=== PATIENT | male | born 1990 | race Caucasian/White ===

== ENCOUNTER 2021-06-13 19:00 | Inpatient (IN) | payer OTHER, SELFPAY ==
[2021-06-13 20:08] VITALS: BP 123/86; PULSE 80; RESP 16; TEMP 36.7; O2SAT 99; BMI 17.4
[2021-06-13 20:44] LABS: COVID-19 Test Negative (Negative); IDNOW Serial# 08D9AD1C
[2021-06-13 21:13] LABS: Amphetamine Screen Urine Not Detected (Not Detect); Barbiturates, Urine Not Detected (Not Detect); Benzodiazepines Screen Urine Not Detected (Not Detect); Cannabinoid Screen Urine Not Detected (Not Detect); Cocaine Screen Urine Not Detected (Not Detect); Fentanyl, urine Not Detected (Not Detect); Opiate Screen Urine Not Detected (Not Detect); Phencyclidine Screen Urine Not Detected (Not Detect)
[2021-06-13 21:22] LABS: Basophils Absolute Auto 0.1 X10*3/uL (0.0-0.2); Basophils Percent Auto 0.6 % (0-2); Eosinophils Absolute Auto 0.2 X10*3/uL (0.0-0.4); Eosinophils Percent Auto 1.9 % (0-4); Hematocrit 42.7 % (42.0-52.0); Hemoglobin 15.1 g/dl (14.0-18.0); Imm Gran Abs Auto 0.02 X10*3/uL (0.00-0.03); Imm Gran Pct Auto 0.2 % (0.0-0.4); Lymphocytes Absolute Auto 2.3 X10*3/uL (1.2-4.9); Lymphocytes Percent Auto 27.3 % (20-40); MANUAL DIFF FLAG NO; Mean Corpuscular HGB Conc 35.4 g/dl (31.0-36.0); Mean Corpuscular Hemoglobin 31.2 pg (27.0-33.0); Mean Corpuscular Volume 88.2 fL (80.0-98.0); Mean Platelet Volume 9.7 fL (9.4-12.4); Monocytes Absolute Auto 0.8 X10*3/uL (0.1-1.2); Monocytes Percent Auto 9.4 % (2-11); Neutrophils Absolute Auto 5.1 x10*3/uL (2.0-8.3); Neutrophils Percent Auto 60.6 % (45-73); Platelet Count 199 X10*3/uL (160-400); Red Blood Count 4.84 X10*6/uL (4.60-5.80); Red Cell Distribution Width 11.8 % (11.0-16.0); White Blood Count 8.4 X10*3/uL (4.8-10.8)
--- NOTE | 2021-06-13 21:28 | ED_ITS ---
HPI - Psych General Chief Complaint: Psychiatric Symptoms Stated Complaint: depression and anxiety Time Seen by Provider: 06/13/21 21:03 Source: patient Mode of arrival: ambulatory Limitations: no limitations History of Present Illness HPI Narrative: 30-year-old male with a history of anxiety and depression here with reports of increasing depression over the last few months despite changing his sertraline to use buspar. Patient tells me that he does not have a therapist or psychiatrist and is medications are being prescribed by primary care doctor. He tells me that he has had poor appetite, not wanting to get out of bed, nausea, vomiting at times and weight loss. Patient tells me that typically when he has his anxiety he vomits and this is pretty normal for him. There is no associated abdominal pain or diarrhea. No black or bloody stools. Emesis is nonbloody and nonbilious. No associated fevers, chills, urinary symptoms. Patient tells me that today he feels increasingly depressed and had some thoughts of suicide in the last week. Patient tells me that he thought of overdosing on his medications or shooting himself with a gun Related Data Home Medications Medication Instructions Recorded Confirmed buspirone 5 mg tablet 1 tab PO TID 06/13/21 06/13/21 sertraline 50 mg tablet 1 tab PO DAILY 06/13/21 06/13/21 Allergies Allergy/AdvReac Type Severity Reaction Status Date / Time No Known Allergies Allergy Verified 06/13/21 20:30 Review of Systems Review of Systems: Yes all other systems are reviewed and are negative Constitutional: Constitutional: Reports no additional constitutional complaints, Denies body ache(s), Denies chills, Denies fever(s), Denies headache(s), Reports lethargy, Reports poor appetite, Denies weakness and Reports weight loss Eyes: Eyes: Reports no additional eye complaints and Denies change in vision ENT: Reports system reviewed and no additional complaints, except as documented, Denies dizziness, Denies headache(s), Denies nasal congestion, Denies nasal discharge and Denies neck pain Cardiovascular: Cardiovascular: Reports no additional cardiovascular complaints, Denies chest pain, Denies leg edema and Denies dyspnea Respiratory: Respiratory: Reports no additional respiratory complaints, Denies cough and Denies dyspnea Gastrointestinal: Gastrointestinal: Reports no additional gastrointestinal complaints, Denies abdominal pain, Denies diarrhea, Reports nausea and Reports vomiting Genitourinary: Genitourinary: Denies urinary incontinence Musculoskeletal: Musculoskeletal: Reports no additional musculoskeletal complaints, Denies back pain, Denies arthralgias, Denies joint swelling, Denies neck pain, Denies numbness and Denies tingling Integumentary/Breasts: Skin/Breast: Reports system reviewed and no additional complaints, except as docu and Denies rash Neurologic: Reports system reviewed and no additional complaints, except as documented, Denies Abnormal speech present, Denies dizziness, Denies headache(s), Denies numbness, Denies tingling and Denies weakness Psychiatric: Psychiatric: Reports anxiety, Reports depression and Reports suicidal ideation COUNTS INCLUDE 234 BEDS AT THE [facility] Past Medical History Attestation statement: The following information was validated with the patient. Source: old records reviewed and nursing notes reviewed Medical History Anxiety Depression Social History Social History Advance Directives: No Advance Directives Information Provided: No Guardian: No Physical Exam Vital Signs: Vital Signs: Last Vital Signs Temp 98.2 F 06/13/21 23:09 Pulse 76 06/13/21 23:09 Resp 17 06/13/21 23:09 BP 126/84 06/13/21 23:09 Pulse Ox 99 06/13/21 23:09 BMI result Body Mass Index 17.4 Const: General: cooperative, healthy appearing, comfortable and no acute distress Orientation/consciousness: patient oriented x3 Limitations: no limitations HENMT: Head: Yes normal to inspection Ears: hearing grossly normal bilaterally and TM's normal bilaterally General nose exam: Normal external nose present Face and sinus: Yes normal facial exam Mouth: Normal oral and palatal mucosa present Throat: Yes posterior oropharynx normal, Yes tonsils normal and Yes uvula midline Eyes: General: appearance normal, both eyes and all related structures Pupils: Equal, round and reactive pupils present Neck: Neck: Yes normal visual inspection Chest: Chest palpation & inspection: normal inspection of the chest Resp: Effort & Inspection: normal respiratory effort Auscultation: clear to auscultation bilaterally Cardio: Rate: regular rate Rhythm: regular rhythm Peripheral pulses: Peripheral pulses 2+ throughout GI: Inspection: Yes normal to inspection Palpation (GI): Soft to palpation and nontender Auscultation: normal bowel sounds Back/Spine/Pelvis: Thoracic/Lumbar Spine: thoracic and lumbar spine normal to inspection Skin: General skin exam: no rashes or lesions noted Neuro: General: patient oriented x3, no focal motor deficits and normal sensation to monofilament Cranial nerves: Yes CN's II-XII intact bilaterally, Yes Equal, round and reactive pupils present, Yes Bilaterally intact EOM pr esent, Yes Nystagmus not present, Yes Normal facial strength present and Yes Midline tongue present Cognition (Neuro): normal cognition Speech: No Abnormal speech present Gait exam (Neuro): Normal gait present Motor exam (neuro): 5/5 motor strength present throughout Extrem: General: Yes normal to inspection Course Course Course Narrative: 30-year-old male here with reports of depression and anxiety over the last few months with suicidal thoughts over the last week. Patient is also complaining of some weight loss, fatigue, poor appetite, low energy, vomiting. No associated abdominal pain or diarrhea or fevers. Exam is benign. Vitals are stable. Will check labs, drug screen, COVID screen. Once medically cleared patient will require a care team consult No concern for acute ingestion or trauma 2320-patient seen by care team (Jayda). Plan for patient to remain in the emergency department tonight. Will follow-up with patient in the morning and obtain collateral information. Per care team patient can leave if he wants to and is here voluntarily 0200-Sign out to dr jones pending disposition MDM - Psych Medical Records Attestation: I reviewed the patient's medical records. Lab Data Attestation: I reviewed the patient's lab results. Result diagrams: 06/13/21 21:18 06/13/21 21:18 Labs: Lab Results 06/13/21 06/13/21 06/13/21 Range/Units 20:15 20:43 21:18 WBC (4.8-10.8) X10*3/uL RBC (4.60-5.80) X10*6/uL Hgb (14.0-18.0) g/dl Hct (42.0-52.0) % MCV (80.0-98.0) fL MCH (27.0-33.0) pg MCHC (31.0-36.0) g/dl RDW (11.0-16.0) % Plt Count (160-400) X10*3/uL MPV (9.4-12.4) fL Immature Gran % (Auto) (0.0-0.4) % Neut % (Auto) (45-73) % Lymph % (Auto) (20-40) % [place] % (Auto) (2-11) % Eos % (Auto) (0-4) % Baso % (Auto) (0-2) % Lymph # (Auto) (1.2-4.9) X10*3/uL [place] # (Auto) (0.1-1.2) X10*3/uL Eos # (Auto) (0.0-0.4) X10*3/uL Baso # (Auto) (0.0-0.2) X10*3/uL Abs Immat Gran (auto) (0.00-0.03) X10*3/uL Absolute Neuts (auto) (2.0-8.3) x10*3/uL Absolute Nucleated RBC (0.0-0.012) X10*3/uL Nucleated RBC % (auto) (0.0-0.2) /100WBC Sodium (135-145) mmol/L Potassium (3.3-5.1) mmol/L Chloride (96-108) mmol/L Carbon Dioxide (22-29) mmol/L Anion Gap (12-20) BUN (9-16) mg/dL Creatinine (0.5-1.4) mg/dL Estim Creat Clear Calc Estimated GFR Random Glucose (60-115) mg/dL Calcium (8.4-10.2) mg/dL Urine Opiates Screen Not Detected (Not Detect) Urine Fentanyl Screen Not Detected (Not Detect) Ur Barbiturates Screen Not Detected (Not Detect) Ur Phencyclidine Scrn Not Detected (Not Detect) Ur Amphetamines Screen Not Detected (Not Detect) U Benzodiazepines Scrn Not Detected (Not Detect) Urine Cocaine Screen Not Detected (Not Detect) U Marijuana (THC) Screen Not Detected (Not Detect) Ethyl Alcohol < 10 mg/dL COVID-19 ([facility]ARTIR) Negative (Negative) COVID-19 Clin Com See Note 06/13/21 06/13/21 Range/Units 21:18 21:18 WBC 8.4 (4.8-10.8) X10*3/uL RBC 4.84 (4.60-5.80) X10*6/uL Hgb 15.1 (14.0-18.0) g/dl Hct 42.7 (42.0-52.0) % MCV 88.2 (80.0-98.0) fL MCH 31.2 (27.0-33.0) pg MCHC 35.4 (31.0-36.0) g/dl RDW 11.8 (11.0-16.0) % Plt Count 199 (160-400) X10*3/uL MPV 9.7 (9.4-12.4) fL Immature Gran % (Auto) 0.2 (0.0-0.4) % Neut % (Auto) 60.6 (45-73) % Lymph % (Auto) 27.3 (20-40) % [place] % (Auto) 9.4 (2-11) % Eos % (Auto) 1.9 (0-4) % Baso % (Auto) 0.6 (0-2) % Lymph # (Auto) 2.3 (1.2-4.9) X10*3/uL [place] # (Auto) 0.8 (0.1-1.2) X10*3/uL Eos # (Auto) 0.2 (0.0-0.4) X10*3/uL Baso # (Auto) 0.1 (0.0-0.2) X10*3/uL Abs Immat Gran (auto) 0.02 (0.00-0.03) X10*3/uL Absolute Neuts (auto) 5.1 (2.0-8.3) x10*3/uL Absolute Nucleated RBC 0.000 (0.0-0.012) X10*3/uL Nucleated RBC % (auto) 0.0 (0.0-0.2) /100WBC Sodium 137 (135-145) mmol/L Potassium 4.0 (3.3-5.1) mmol/L Chloride 106 (96-108) mmol/L Carbon Dioxide 22 (22-29) mmol/L Anion Gap 13 (12-20) BUN 15 (9-16) mg/dL Creatinine 0.79 (0.5-1.4) mg/dL Estim Creat Clear Calc 115.2 Estimated GFR > 60 Random Glucose 95 (60-115) mg/dL Calcium 9.8 (8.4-10.2) mg/dL Urine Opiates Screen (Not Detect) Urine Fentanyl Screen (Not Detect) Ur Barbiturates Screen (Not Detect) Ur Phencyclidine Scrn (Not Detect) Ur Amphetamines Screen (Not Detect) U Benzodiazepines Scrn (Not Detect) Urine Cocaine Screen (Not Detect) U Marijuana (THC) Screen (Not Detect) Ethyl Alcohol mg/dL COVID-19 ([facility]IR) (Negative) COVID-19 Clin Com Discharge Plan Discharge Clinical Impression: Depression Patient Disposition: Still a Patient Prescriptions: No Action buspirone 5 mg tablet 1 tab PO TID RF: 0 sertraline 50 mg tablet 1 tab PO DAILY RF: 0
[2021-06-13 21:59] LABS: Ethanol < 10 mg/dL
[2021-06-13 22:01] LABS: Anion Gap 13 (12-20); Blood Urea Nitrogen 15 mg/dL (9-16); Calcium 9.8 mg/dL (8.4-10.2); Carbon Dioxide 22 mmol/L (22-29); Chloride 106 mmol/L (96-108); Creatinine Clr Calc Pharmacy 115.2; Estimated Glomerular Filt Rate > 60; Glucose Random 95 mg/dL (60-115); Sodium 137 mmol/L (135-145)
[2021-06-13 23:09] VITALS: BP 126/84; PULSE 76; RESP 17; TEMP 36.8; O2SAT 99
--- NOTE | 2021-06-14 01:05 | MHC.CARE ---
CARE team completed crisis evaluation with pt. Plan of care is for follow up in the morning to determine final disposition.
--- NOTE | 2021-06-14 05:59 | PC.NURSE ---
Patient slept through the night, no distress observed/reported, behavior appropriate, cooperative, and non concerning, medication rec completed/approved/MAR updated, appetite good, elimination intact, patient was screened by care team no disposition at this time, will be reevaluated in the morning, VSS, will continue to monitor
--- NOTE | 2021-06-14 07:26 | PC.NURSE ---
patient appears to remain at rest at present respirations are even and unlabored patient appears in no distress
[2021-06-14 09:31] VITALS: BP 139/90; PULSE 76; RESP 16; TEMP 37; O2SAT 100
[2021-06-14] MEDS: Sertraline HCL 50 MG TABLET PO (09:43)
--- NOTE | 2021-06-14 09:54 | PC.NURSE ---
at present patient says provider was going to increase zoloft to 100mg and stop buspar, patient declined todays am buspar.
[2021-06-14 16:07] VITALS: BP 98/65; PULSE 81; TEMP 36.2; O2SAT 100
--- NOTE | 2021-06-15 | ECG_ITS ---
Test Reason : MEDCLEARANCE Blood Pressure : / mmHG Vent. Rate : 069 BPM Atrial Rate : 069 BPM P-R Int : 158 ms QRS Dur : 080 ms QT Int : 376 ms P-R-T Axes : 078 080 070 degrees QTc Int : 402 ms Normal sinus rhythm Normal ECG No previous ECGs available Referred By: Beata Roe Electronically Signed By:MAU SAM MD
--- NOTE | 2021-06-15 05:35 | PC.NURSE ---
Patient slept through the night, no distress observed/reported, behavior cooperative and non concerning, medication compliant but refusing Busper, appetite good, elimination intact, disposition per Care Team is section 12 inpatient bed search, will continue to monitor
--- NOTE | 2021-06-15 07:16 | PC.NURSE ---
patient appears to remain asleep at present respirations are even and unlabored, patient appears in no distress
[2021-06-15] MEDS: Sertraline HCL 50 MG TABLET PO (08:08)
[2021-06-15 14:47] VITALS: BP 105/65; PULSE 75; RESP 18; O2SAT 99
[2021-06-15 15:13] LABS: COVID-19 Test Negative (Negative)
--- NOTE | 2021-06-15 17:43 | PC.ADMIT ---
PT admitted to unit from [facility] with a diagnosis of Unspecified depressive disorder on a conditional voluntary. PT tox screen was negative, pt denies drug and alcohol use. PT reports that last week he went to [facility] due to having suicidal ideation with a plan to shoot himself or overdose, he states those thoughts did not go away so he went to the emergency room for more help. PT states that over the past few weeks his depression has notably increased and he is unsure why. PT reports that he has had no motivation or energy, he reports that he has been eating poorly due to poor appetite and has lost about 40 pounds. PT is help seeking, states that he has been on sertraline for a while and he does not find it helpful. Pt states he was prescribed buspar but does not want to take it because he does not know why it was prescribed in the emergency room. PT denies SI, HI and hallucinations at this time. PT states this is his first inpatient experience and is open to the experience. PT is calm and cooperative with admission process. 15 minute safety checks initiated for safety.
[2021-06-15 17:49] VITALS: BP 110/68; PULSE 86; RESP 17; TEMP 36.6; O2SAT 100
[2021-06-15 18:00] VITALS: BP 117/73; PULSE 70; RESP 16; TEMP 36.9; O2SAT 100
[2021-06-16 08:43] LABS: Alanine Aminotransferase 14 U/L (0-40); Albumin Level 4.2 g/dL (3.5-5.0); Alkaline Phosphatase 45 U/L (39-117); Aspartate Amino Transferase 12 U/L (5-37); Bilirubin Direct 0.3 mg/dL (0.0-0.5); Bilirubin Total 0.6 mg/dL (0.0-1.0); Total Protein 6.3 g/dL (6.5-8.0)
[2021-06-16 09:03] LABS: TSH reflex Free T4 1.76 uIU/mL (0.32-4.0)
[2021-06-16] MEDS: Sertraline HCL 50 MG TABLET PO (09:16)
--- NOTE | 2021-06-16 10:22 | P.HPPS_ITS ---
HPI Date of Service: 06/16/21 Chief Complaint: Depression Sources of Information: patient interviewed, chart reviewed and crisis/core team assessment reviewed HPI Subjective Notes: Lewis Warning and Conditional Voluntary Narrative: Patient is a 30-year-old [employer] with history of major depressive disorder, who presents for worsening depression and the face of being under medicated. Patient reports that he has been depressed for most of his life dating back to high school during which time he says he drank and smoked cannabis to improve his mood. Patient reports his childhood was difficult because his father was in the , very strict, critical and seldom expressing warmth; mother and father alcoholics. Patient graduated high school and went into the [employer] for 2 years where there was excessive alcohol abuse which he got caught up in; combined with patient's continued depression he did not function well and ended up being other than honorably discharged. Patient's depression continued throughout his 20s; despite that it could get severe sometimes he was able to force himself to continue working and distract himself with life's activities. Patient works for the [employer] by his father. Patient quit drinking about 2 years ago realizing that it was making depression worse; quit cannabis a year ago. His depression remained but has significantly worsened over the past month; patient was on Zoloft 100 mg but due to sexual side effects it had been lowered to 50 mg; for the 1st time he intermittently began to have suicidal thoughts. Patient reports he never had any plans or intention and says he would never actually hurt himself or anyone else, however having these thoughts worried him. The past 2 weeks patient's depression increased even more and for the 1st time he was unable to force himself to go to work. He endorses diminished interest, low energy, poor concentration, poor appetite and 30 lb weight loss over the past several months, increased sleeping and more frequent SI. Patient continues to report he never had any intention or plans but the fact that SI was present at all worried him and he told his girlfriend to remove his guns from the house (he reiterates, he had no thoughts of using them but did want to take the chance of his depression getting worse). His girlfriend admonished him to present to the ED which he did. Patient denies any history of manic type behaviors or episodes; patient endorsed some childhood trauma but says it is not something ever thinks about. Patient reports that he has struggles with anxiety and that when he wakes up, nearly every morning he feels panicky and cries which is triggered by multiple anxious thoughts such as worries about how were ?go, worries about whether he will be successful life and worries about whether his girlfriend will get sick and how hard life be without her. Patient said that it is hard to get himself ready for work as this delays him; once he gets to work and is able to distract himself the anxiety is down some. He also shares that about 5 years ago his best friend had a brain aneurysm and suddenly. Patient also endorses nightmares of and dying at least 4 times a week, often waking up with the sheets wet with sweat. Patient denies any history of AVH; no history of suicide attempts. Patient currently denies any SI; he wants treatment but hopes to be able to discharge soon and continue treatment as an outpatient. He agrees that therapy will be extremely helpful. Past Psychiatric History: Long history of depression; no history of psychiatric admissions; no history of suicide attempts Trial of Wellbutrin, only 100 mg, no effect Trial of Lexapro Trial of Zoloft 100mg with partial help but with sexual side effects so lowered to 50mg Recently prescribed BuSpar which patient has not taken Medical Evaluation Reviewed: Yes [facility] Medical History (Updated 06/16/21 @ 14:44 by Harsh Ann MD) Anxiety Depression SIMRAN (generalized anxiety disorder) MDD (major depressive disorder), recurrent severe, without psychosis Family History: Father: Depression; ETOH abuse Mom: Anxiety Brother: Depression Paternal cousin committed suicide Social History: family; father strict; grew up with parents older brother and younger sister Graduated high school [employer] for 2 years with other than honorable discharge due to excessive drinking which combined with depression resulted in poor functioning Currently has a good relationship with his girlfriend; owns his own house; works for the [employer] business which is run by his father Distant relationship with father Substance History: History of alcohol abuse, sober for 2 years; used to smoke cannabis daily but now sober from cannabis for 1 month Trauma History: Some childhood trauma; patient says seldom things about Diagnostics Vital Signs (24Hr): Vital Signs - 24 hr 06/15/21 14:47 06/15/21 17:49 06/15/21 18:00 Temperature 97.8 F 98.4 F Pulse Rate 75 86 70 Respiratory Rate 18 17 16 Blood Pressure 105/65 110/68 117/73 Pulse Oximetry 99 100 100 BMI result Body Mass Index 17.4 Labs Results: 06/13/21 21:18 06/13/21 21:18 Labs: Laboratory Results - last 48 hr 06/15/21 06/16/21 14:13 08:02 Total Bilirubin 0.6 Direct Bilirubin 0.3 AST 12 ALT 14 Alkaline Phosphatase 45 Total Protein 6.3 L Albumin 4.2 TSH 1.76 COVID-19 ([facility]IR) Negative COVID-19 Clin Com See Note Meds/Allergies Meds Home Medications Acetaminophen (Acetaminophen 325 Mg Tablet) 650 mg PO Q6H PRN PRN Reason: Headache/Pain Mild Scale (1-3) Al Hydroxide/Mg Hydroxide (Magnesium Hydrox/Alum Hydrox 30 Ml Oral.Susp) 30 ml PO Q6H PRN PRN Reason: Heartburn/Nausea Bupropion HCl (Bupropion Hcl Xl 150 Mg Tab.Er.24h) 150 mg PO DAILY [facility] Hydroxyzine HCl (Hydroxyzine Hcl 25 Mg Tablet) 25 mg PO TID PRN PRN Reason: Anxiety Magnesium Hydroxide (Milk Of Magnesia 30 Ml Oral.Susp) 30 ml PO DAILY PRN PRN Reason: Constipation Nicotine Polacrilex (Nicotine Polacrilex 2 Mg Gum) 4 mg BUCCAL Q2H PRN PRN Reason: Nicotine Cravings Sertraline HCl (Sertraline Hcl 50 Mg Tablet) 50 mg PO DAILY [facility] Last Admin: 06/16/21 09:16 Dose: 50 mg Documented by: Trazodone HCl (Trazodone Hcl 50 Mg Tablet) 50 mg PO BEDTIME PRN PRN Reason: Insomnia Allergies Allergies Allergy/AdvReac Type Severity Reaction Status Date / Time No Known Allergies Allergy Verified 06/13/21 20:30 Mental Status Exam Mental Status Exam Narrative: Pt is alert and oriented; behavior is cooperative, friendly and calm; patient is not in distress; dressed in neat, casual attire with styled haircut and good hygiene; mood is described as depressed and affect congruent, downcast face, tearful at times; eye contact appropriate; Speech is normal rate, volume and prosody and not pressured; no psychomotor agitation/retardation present; thought process is organized and goal directed; Thought content is on tx; otherwise pertinent to relevant topics and without any delusional content, paranoid ideations or grandiosity; denies any SI/HI. There is no evidence of perceptual disturbance. Patients insight and judgment are impaired but adequate. Assessment & Plan Assessment & Plan (1) MDD (major depressive disorder), recurrent severe, without psychosis: Status: Acute Code(s): F33.2 - Major depressive disorder, recurrent severe without psychotic features (2) SIMRAN (generalized anxiety disorder): Status: Acute Code(s): F41.1 - Generalized anxiety disorder Assessment and Plan: Chart reviewed: labs WNL Case discussed with nursing: behaviors appropriate Case discussed with social sciences chair: agrees with treatment plan (see below) ? IMPRESSION: Patient is a 30-year-old [place] with history of major depressive disorder, who presents for worsening depression and the face of being under medicated. Patient's depressive symptoms are chronic, starting back as far as at least adolescents and seems due to an organic proclivity towards depression, combined with a childhood home environment with a strict, critical father that whittled away self-esteem. Patient has had only limited medication trials at subtherapeutic doses and has never engaged in therapy. Patients depression has worsened over the month and especially the past 2 weeks and for the 1st time he had suicidal ideation; patient denies any intent or plan and says he would never want to kill himself but the fact that he even had the thought worried him enough to finally be open about his struggles. Patient also has generalized anxiety disorder as his worries impede function, are nearly daily and have been for over 6 months (with associated restlessness, sleep disturbance, feeling of fatigue). ? Hospital Course and clinical reasoning: Will start Wellbutrin; patient tried 100 mg in the past but at that low-dose there was no affect; patient did get sexual side effects from Zoloft and Wellbutrin was added to mitigate these effects however this caused a headache; patient however discontinued only after few days and it is quite possible that this side effect would have resolved on its own. Wellbutrin is good for depression and is low on the list for causing sexual side effects; while it can lower appetite, patient's appetite issues seem to be solely due to depression. Patient does say that Zoloft 100 mg might of been partially helpful and so it might be worth leaving on for now, even at low dose. DX: MDD, recurrent, severe without psychosis SIMRAN ? PLAN: Pt on CV Q15min checks -start Wellbutrin XL 150 mg q.day; patient had been on Wellbutrin in the past but only 100 mg of immediate release -continue Zoloft 50 mg; the last time patient tried to taper off Zoloft he got discontinuation syndrome; will leave this on for now so as to eliminate variables when trying to assess for side effects -DC BuSpar stay: Patient has not yet taken; will see if monotherapy can work -consider prazosin: Patient has nightmares and wakes up anxious nearly every morning ? ...will hopefully help to enhance medication adherence. ? -Comsec Manager discussed risks/side effects of medication regimen, including....; patient communicated understanding of benefits, risks and side-effects of medications and wants to continue with regimen. -Current doses appear appropriate; will continue to monitor and titrate as clinical determined. -Pt denies medication side-effects; pt agrees to inform underwriter solicitation director if this changes. ? -Tobacco Use treatment offered/provided: yes ? GOALS OF TREATMENT/TEAM DISCUSSIONS: Case discussed with nursing staff and with social sciences chair SW and underwriter solicitation director discussed treatment plan with patient ?-Comsec Manager discussed case with ANA who agrees that patient is appropriate for admission and will continue to discuss treatment options; ANA agrees to help in developing an appropriate plan for aftercare ? OTHER RELEVANT HISTORY: -Past med trials: Under Review -Patients hx of illness/diagnosis: Under Review Reason for continued inpatient stay Substantial Risk for: med/psych decompensation
[2021-06-16] MEDS: buPROPion HCl XL 150 MG TAB.ER.24H PO (12:31)
[2021-06-16 17:05] VITALS: BP 112/70; PULSE 98; TEMP 37.1
[2021-06-16] MEDS: traZODone HCL 50 MG TABLET PO ×2 (21:31→23:23)
[2021-06-16] MEDS: hydrOXYzine HCL 25 MG TABLET PO (23:22)
[2021-06-17 06:34] VITALS: BP 119/58; PULSE 92; RESP 16; TEMP 36.6; O2SAT 95
[2021-06-17] MEDS: buPROPion HCl XL 150 MG TAB.ER.24H PO (09:05)
[2021-06-17] MEDS: Sertraline HCL 50 MG TABLET PO (09:05)
--- NOTE | 2021-06-17 11:41 | P.PNPSI_ITS ---
Subjective Subjective Date of Service: 06/17/21 Reason For Visit: Depression Interim History: Patient says he is feeling better. He said he can tell because he is having less negative thoughts and actually feeling happy. He also said that he smiled which he reports he has not done in quite a while. Patient denies any nightmares last night. Patient said he had some trouble sleeping and ended up taking trazodone x2. He also said that he has a history of having a restless leg an arm that he feels he needs to shake in order to trying get to sleep and this was a little more pronounced last night. Vacuum Repairer discussed possibility of restless leg syndrome and the potential for medication to exacerbate this. Patient says he will continue to monitor and see how it goes. Patient and technical document writer discussed medication management and patient would like to go up to the Wellbutrin XL 300 mg rather than leave it at 150mg and risk being underdosed. Vacuum Repairer agrees otherwise patient has no complaints, no requests. Mental Status Exam Mental Status Exam Narrative: Pt is alert and oriented; behavior is cooperative, friendly and calm; patient is not in distress; dressed in neat, casual attire with styled haircut and good hygiene; mood is described as better and affect congruent, noticeably warmer and intermittently smiling; no tearfulness; eye contact appropriate; Speech is normal rate, volume and prosody and not pressured; no psychomotor agitation/retardation present; thought process is organized and goal directed; Thought content is on tx; otherwise pertinent to relevant topics and without any delusional content, paranoid ideations or grandiosity; denies any SI/HI. There is no evidence of perceptual disturbance. ?Patients insight and judgment are adequate. Diagnostics Vital Signs (24Hr): Vital Signs - 24 hr 06/16/21 17:05 06/17/21 06:34 Temperature 98.7 F 98 F Pulse Rate 98 92 Respiratory Rate 16 Blood Pressure 112/70 119/58 L Pulse Oximetry 95 BMI result Body Mass Index 17.4 Labs Results: 06/13/21 21:18 06/13/21 21:18 Labs: Laboratory Results - last 48 hr 06/15/21 06/16/21 14:13 08:02 Total Bilirubin 0.6 Direct Bilirubin 0.3 AST 12 ALT 14 Alkaline Phosphatase 45 Total Protein 6.3 L Albumin 4.2 TSH 1.76 COVID-19 ([facility]) Negative COVID-19 Clin Com See Note Medications Medications Current Medications Acetaminophen (Acetaminophen 325 Mg Tablet) 650 mg PO Q6H PRN PRN Reason: Headache/Pain Mild Scale (1-3) Al Hydroxide/Mg Hydroxide (Magnesium Hydrox/Alum Hydrox 30 Ml Oral.Susp) 30 ml PO Q6H PRN PRN Reason: Heartburn/Nausea Bupropion HCl (Bupropion Hcl Xl 300 Mg Tab.Er.24h) 300 mg PO DAILY [facility] Hydroxyzine HCl (Hydroxyzine Hcl 25 Mg Tablet) 25 mg PO TID PRN PRN Reason: Anxiety Last Admin: 06/16/21 23:22 Dose: 25 mg Documented by: Magnesium Hydroxide (Milk Of Magnesia 30 Ml Oral.Susp) 30 ml PO DAILY PRN PRN Reason: Constipation Nicotine Polacrilex (Nicotine Polacrilex 2 Mg Gum) 4 mg BUCCAL Q2H PRN PRN Reason: Nicotine Cravings Sertraline HCl (Sertraline Hcl 50 Mg Tablet) 50 mg PO DAILY [facility] Last Admin: 06/17/21 09:05 Dose: 50 mg Documented by: Trazodone HCl (Trazodone Hcl 50 Mg Tablet) 50 mg PO BEDTIME PRN PRN Reason: Insomnia Last Admin: 06/16/21 23:23 Dose: 50 mg Documented by: Allergies Allergies Allergy/AdvReac Type Severity Reaction Status Date / Time No Known Allergies Allergy Verified 06/13/21 20:30 Assessment & Plan Assessment & Plan (1) MDD (major depressive disorder), recurrent severe, without psychosis: Status: Acute Code(s): F33.2 - Major depressive disorder, recurrent severe without psychotic features (2) SIMRAN (generalized anxiety disorder): Status: Acute Code(s): F41.1 - Generalized anxiety disorder Assessment and Plan: Chart reviewed: labs WNL Case discussed with nursing: behaviors appropriate Case discussed with mental health social worker: agrees with treatment plan (see below) ? IMPRESSION: Patient is a 30-year-old [place] with history of major depressive disorder, who presents for worsening depression and the face of being under medicated. Patient's depressive symptoms are chronic, starting back as far as at least adolescents and seems due to an organic proclivity towards depression, combined with a childhood home environment with a strict, critical father that whittled away self-esteem. Patient has had only limited medication trials at subtherapeutic doses and has never engaged in therapy. Patients depression has worsened over the month and especially the past 2 weeks and for the 1st time he had suicidal ideation; patient denies any intent or plan and says he would never want to kill himself but the fact that he even had the thought worried him enough to finally be open about his struggles. Patient also has generalized anxiety disorder as his worries impede function, are nearly daily and have been for over 6 months (with associated restlessness, sleep disturbance, feeling of fatigue). ? Hospital Course and clinical reasoning: Will start Wellbutrin; patient tried 100 mg in the past but at that low-dose there was no affect; patient did get sexual side effects from Zoloft and Wellbutrin was added to mitigate these effects however this caused a headache; patient however discontinued only after few days and it is quite possible that this side effect would have resolved on its own. Wellbutrin is good for depression and is low on the list for causing sexual side effects; while it can lower appetite, patient's appetite issues seem to be solely due to depression. Patient does say that Zoloft 100 mg might of been partially helpful and so it might be worth leaving on for now, even at low dose. Of note, patient explained that his SI had remained just thoughts of it being easier to be ; he denies ever having any intent or plans and says he knows he would not actually self harm. Patient explained comment about the guns saying he had never any intent, plans or urge to use the guns for self-harm and only had his girlfriend remove them from the house as he was shocked by his own SI and did not know if his depression would get worse. They are currently removed from house 06/17/21 Patient reports that his mood is better and his affect is noticeably brighter, warmer. Patient denies any SI. Also no nightmares last night. Patient reports possible side-effect of trouble sleeping and perhaps exacerbating hx of what sounds like restless leg; pt however wants to continue with current treatment and increase Wellbutrin dose to 300 mg. He thinks insomnia might have been due to starting Wellbutrin later in the day and also sleeping in a strange place; patient also does not want to risk being underdosed given his long history of severe depression. He will monitor for restless leg. Patient expresses hope that he can be discharged Sunday. Patient has no history of suicide attempt and he has a strong supportive relationship with his girlfriend; even during the severe depression with SI he says he never had any intent or plans; in an effort to be responsible he had his girlfriend remove the guns from his house (which is confirmed), not because he had any thoughts or intent to self-harm, but was shocked by his own SI, did know if his depression would get worse and did not want to risk having them available. Patient is future oriented his mood is better current medication which so far he is tolerating well enough. If patient remains stable he will very likely be ready for discharge soon and able to continue treatment as an outpatient DX: MDD, recurrent, severe without psychosis SIMRAN ?r/o Restless leg PLAN: Pt on CV Q15min checks -INCREASE to Wellbutrin XL 300 mg q.day (starting 06/18/21); patient does not want to risk being underdosed given history of depression -continue Zoloft 50 mg; the last time patient tried to taper off Zoloft he got discontinuation syndrome; will leave this on for now so as to eliminate variables when trying to assess for side effects -DC BuSpar stay: Patient has not yet taken; will see if monotherapy can work -consider prazosin: Patient has nightmares and wakes up anxious nearly every morning ?-Vacuum Repairer discussed risks/side effects of medication regimen, but not limited to priaprism; patient communicated understanding of benefits, risks and side- effects of medications and wants to continue with regimen. -Current doses appear appropriate; will continue to monitor and titrate as clinical determined. ?-Tobacco Use treatment offered/provided: yes ?GOALS OF TREATMENT/TEAM DISCUSSIONS: Case discussed with nursing staff and with mental health social worker SW and technical document writer discussed treatment plan with patient; tentatively agree on dc sunday ? I spent minutes with the patient and/or on the patient floor today, greater than?50% of which was spent counseling/coordinating care. Reason for contiued inpatient stay Substantial Risk for: med/psych decompensation
[2021-06-17 22:25] VITALS: BP 109/70; PULSE 98; TEMP 37
[2021-06-18 06:25] VITALS: BP 116/68; PULSE 79; TEMP 37.2
[2021-06-18] MEDS: buPROPion HCl XL 300 MG TAB.ER.24H PO (08:14)
[2021-06-18] MEDS: Sertraline HCL 50 MG TABLET PO (08:14)
--- NOTE | 2021-06-18 09:23 | P.PNPSI_ITS ---
Subjective Subjective Date of Service: 06/18/21 Reason For Visit: Depression Subjective Notes: Conditional Voluntary Interim History: Pt reports feeling less depressed than when he came in. Pt reports improved sleep and appetite. He denies SI/HI. He has been more visible in the unit and has attended some grousp. Social with select peers. Taking medications as prescribed. No side effects noted or reported. Medication Compliance: Yes Side effects from medications: No Attending Groups: Intermittent Review of Systems Acute medical concerns: No Review of Systems Review of Systems Yes all other systems are reviewed and are negative Constitutional: Reports no additional constitutional complaints, Denies body ache(s), Denies chills, Denies fever(s), Denies headache(s), Reports lethargy, Reports poor appetite, Denies weakness and Reports weight loss Eyes: Reports no additional eye complaints and Denies change in vision Reports system reviewed and no additional complaints, except as documented, Denies dizziness, Denies headache(s), Denies nasal congestion, Denies nasal discharge and Denies neck pain Cardiovascular: Reports no additional cardiovascular complaints, Denies chest pain, Denies leg edema and Denies dyspnea Respiratory: Reports no additional respiratory complaints, Denies cough and Denies dyspnea Gastrointestinal: Reports no additional gastrointestinal complaints, Denies abdominal pain, Denies diarrhea, Reports nausea and Reports vomiting Genitourinary: Denies urinary incontinence Musculoskeletal: Reports no additional musculoskeletal complaints, Denies back pain, Denies arthralgias, Denies joint swelling, Denies neck pain, Denies numbness and Denies tingling Skin/Breast: Reports system reviewed and no additional complaints, except as docu and Denies rash Reports system reviewed and no additional complaints, except as documented, Denies Abnormal speech present, Denies dizziness, Denies headache(s), Denies numbness, Denies tingling and Denies weakness Psychiatric: Reports anxiety, Reports depression and Reports suicidal ideation Mental Status Exam Mental Status Exam Narrative: Pt is alert and oriented; behavior is cooperative, friendly and calm; patient is not in distress; dressed in neat, casual attire with styled haircut and good hygiene; mood is described as better and affect congruent, noticeably warmer and intermittently smiling; eye contact appropriate; Speech is normal rate, volume and prosody and not pressured; no psychomotor agitation/retardation present; thought process is organized and goal directed; Thought content is on tx; otherwise pertinent to relevant topics and without any delusional content; denies any SI/HI. There is no evidence of perceptual disturbance. ?Patients insight and judgment are adequate. Diagnostics Vital Signs (24Hr): Vital Signs - 24 hr 06/19/21 17:40 Temperature 97.8 F Pulse Rate 92 Blood Pressure 100/58 L BMI result Body Mass Index 17.4 Labs Results: 06/13/21 21:18 06/13/21 21:18 Medications Medications Current Medications Acetaminophen (Acetaminophen 325 Mg Tablet) 650 mg PO Q6H PRN PRN Reason: Headache/Pain Mild Scale (1-3) Al Hydroxide/Mg Hydroxide (Magnesium Hydrox/Alum Hydrox 30 Ml Oral.Susp) 30 ml PO Q6H PRN PRN Reason: Heartburn/Nausea Bupropion HCl (Bupropion Hcl Xl 300 Mg Tab.Er.24h) 300 mg PO DAILY [facility] Last Admin: 06/19/21 09:18 Dose: 300 mg Documented by: Hydroxyzine HCl (Hydroxyzine Hcl 25 Mg Tablet) 25 mg PO TID PRN PRN Reason: Anxiety Last Admin: 06/19/21 21:01 Dose: 25 mg Documented by: Magnesium Hydroxide (Milk Of Magnesia 30 Ml Oral.Susp) 30 ml PO DAILY PRN PRN Reason: Constipation Nicotine Polacrilex (Nicotine Polacrilex 2 Mg Gum) 4 mg BUCCAL Q2H PRN PRN Reason: Nicotine Cravings Sertraline HCl (Sertraline Hcl 50 Mg Tablet) 50 mg PO DAILY [facility] Last Admin: 06/19/21 09:18 Dose: 50 mg Documented by: Trazodone HCl (Trazodone Hcl 50 Mg Tablet) 50 mg PO BEDTIME PRN PRN Reason: Insomnia Last Admin: 06/18/21 21:41 Dose: 50 mg Documented by: Allergies Allergies Allergy/AdvReac Type Severity Reaction Status Date / Time No Known Allergies Allergy Verified 06/13/21 20:30 Assessment & Plan Assessment & Plan (1) MDD (major depressive disorder), recurrent severe, without psychosis: Status: Acute Code(s): F33.2 - Major depressive disorder, recurrent severe without psychotic features (2) SIMRAN (generalized anxiety disorder): Status: Acute Code(s): F41.1 - Generalized anxiety disorder Assessment and Plan: Chart reviewed: labs WNL Case discussed with nursing: behaviors appropriate Case discussed with psychotherapist social worker: agrees with treatment plan (see below) ? IMPRESSION: Patient is a 30-year-old [place] with history of major depressive disorder, who presents for worsening depression and the face of being under medicated. Patient's depressive symptoms are chronic, starting back as far as at least adolescents and seems due to an organic proclivity towards depression, combined with a childhood home environment with a strict, critical father that whittled away self-esteem. Patient has had only limited medication trials at subtherapeutic doses and has never engaged in therapy. Patients depression has worsened over the month and especially the past 2 weeks and for the 1st time he had suicidal ideation; patient denies any intent or plan and says he would never want to kill himself but the fact that he even had the thought worried him enough to finally be open about his struggles. Patient also has generalized anxiety disorder as his worries impede function, are nearly daily and have been for over 6 months (with associated restlessness, sleep disturbance, feeling of fatigue). ? Hospital Course and clinical reasoning: Will start Wellbutrin; patient tried 100 mg in the past but at that low-dose there was no affect; patient did get sexual side effects from Zoloft and Wellbutrin was added to mitigate these effects however this caused a headache; patient however discontinued only after few days and it is quite possible that this side effect would have resolved on its own. Wellbutrin is good for depression and is low on the list for causing sexual side effects; while it can lower appetite, patient's appetite issues seem to be solely due to depression. Patient does say that Zoloft 100 mg might of been partially helpful and so it might be worth leaving on for now, even at low dose. Of note, patient explained that his SI had remained just thoughts of it being easier to be ; he denies ever having any intent or plans and says he knows he would not actually self harm. Patient explained comment about the guns saying he had never any intent, plans or urge to use the guns for self-harm and only had his girlfriend remove them from the house as he was shocked by his own SI and did not know if his depression would get worse. They are currently removed from house 06/17/21 Patient reports that his mood is better and his affect is noticeably brighter, warmer. Patient denies any SI. Also no nightmares last night. Patient reports possible side-effect of trouble sleeping and perhaps exacerbating hx of what sounds like restless leg; pt however wants to continue with current treatment and increase Wellbutrin dose to 300 mg. He thinks insomnia might have been due to starting Wellbutrin later in the day and also sleeping in a strange place; patient also does not want to risk being underdosed given his long history of severe depression. He will monitor for restless leg. Patient expresses hope that he can be discharged Sunday. Patient has no history of suicide attempt and he has a strong supportive relationship with his girlfriend; even during the severe depression with SI he says he never had any intent or plans; in an effort to be responsible he had his girlfriend remove the guns from his house (which is confirmed), not because he had any thoughts or intent to self-harm, but was shocked by his own SI, did know if his depression would get worse and did not want to risk having them available. Patient is future oriented his mood is better current medication which so far he is tolerating well enough. If patient remains stable he will very likely be ready for discharge soon and able to continue treatment as an outpatient DX: MDD, recurrent, severe without psychosis SIMRAN ?r/o Restless leg PLAN: Pt on CV Q15min checks -INCREASE to Wellbutrin XL 300 mg q.day (starting 06/18/21); patient does not want to risk being underdosed given history of depression -continue Zoloft 50 mg; the last time patient tried to taper off Zoloft he got discontinuation syndrome; will leave this on for now so as to eliminate variables when trying to assess for side effects -DC BuSpar stay: Patient has not yet taken; will see if monotherapy can work -consider prazosin: Patient has nightmares and wakes up anxious nearly every morning ?-Special Services Director discussed risks/side effects of medication regimen, but not limited to priaprism; patient communicated understanding of benefits, risks and side- effects of medications and wants to continue with regimen. -Current doses appear appropriate; will continue to monitor and titrate as clinical determined. ?-Tobacco Use treatment offered/provided: yes ?GOALS OF TREATMENT/TEAM DISCUSSIONS: Case discussed with nursing staff and with psychotherapist social worker SW and sba underwriter discussed treatment plan with patient; tentatively agree on dc sunday 06/18- continue per primary treatment team ? I spent minutes with the patient and/or on the patient floor today, greater than?50% of which was spent counseling/coordinating care. Reason for contiued inpatient stay Substantial Risk for: stable for discharge
[2021-06-18 18:00] VITALS: BP 115/70; PULSE 84; RESP 18; TEMP 36.8; O2SAT 96
[2021-06-18] MEDS: traZODone HCL 50 MG TABLET PO ×2 (20:48→21:41)
[2021-06-18] MEDS: hydrOXYzine HCL 25 MG TABLET PO (23:09)
[2021-06-19 06:00] VITALS: BP 114/70; PULSE 72; RESP 18; TEMP 36.2; O2SAT 97
[2021-06-19 08:24] VITALS: BP 114/61; PULSE 82; TEMP 36.7; O2SAT 98
[2021-06-19] MEDS: Sertraline HCL 50 MG TABLET PO (09:18)
[2021-06-19] MEDS: buPROPion HCl XL 300 MG TAB.ER.24H PO (09:18)
--- NOTE | 2021-06-19 09:26 | P.PNPSI_ITS ---
Subjective Subjective Date of Service: 06/19/21 Reason For Visit: Depression Subjective Notes: Conditional Voluntary Interim History: Pt continues to present as pleasant on approach. Pt denies symptoms of depressionn, increasingly more future oriented looking forward to be discharge soon. Pt reports improved sleep and appetite. He denies SI/HI. He has been more visible in the unit and has attended some group. Social with select peers. Taking medications as prescribed. No side effects noted or reported. No behavioral concern. Medication Compliance: Yes Side effects from medications: No Review of Systems Review of Systems Yes all other systems are reviewed and are negative Constitutional: Reports no additional constitutional complaints, Denies body ache(s), Denies chills, Denies fever(s), Denies headache(s), Reports lethargy, Reports poor appetite, Denies weakness and Reports weight loss Eyes: Reports no additional eye complaints and Denies change in vision Reports system reviewed and no additional complaints, except as documented, Denies dizziness, Denies headache(s), Denies nasal congestion, Denies nasal discharge and Denies neck pain Cardiovascular: Reports no additional cardiovascular complaints, Denies chest pain, Denies leg edema and Denies dyspnea Respiratory: Reports no additional respiratory complaints, Denies cough and Denies dyspnea Gastrointestinal: Reports no additional gastrointestinal complaints, Denies abdominal pain, Denies diarrhea, Reports nausea and Reports vomiting Genitourinary: Denies urinary incontinence Musculoskeletal: Reports no additional musculoskeletal complaints, Denies back pain, Denies arthralgias, Denies joint swelling, Denies neck pain, Denies numbness and Denies tingling Skin/Breast: Reports system reviewed and no additional complaints, except as docu and Denies rash Reports system reviewed and no additional complaints, except as documented, Denies Abnormal speech present, Denies dizziness, Denies headache(s), Denies numbness, Denies tingling and Denies weakness Psychiatric: Reports anxiety, Reports depression and Reports suicidal ideation Mental Status Exam Mental Status Exam Narrative: Pt is alert and oriented; behavior is cooperative, friendly and calm; patient is not in distress; dressed in neat, casual attire with styled haircut and good hygiene; mood is described as better and affect congruent, noticeably warmer and intermittently smiling; eye contact appropriate; Speech is normal rate, volume and prosody and not pressured; no psychomotor agitation/retardation present; thought process is organized and goal directed; Thought content is on tx; otherwise pertinent to relevant topics and without any delusional content; denies any SI/HI. There is no evidence of perceptual disturbance. ?Patients insight and judgment are adequate. Diagnostics Vital Signs (24Hr): Vital Signs - 24 hr 06/19/21 17:40 Temperature 97.8 F Pulse Rate 92 Blood Pressure 100/58 L BMI result Body Mass Index 17.4 Labs Results: 06/13/21 21:18 06/13/21 21:18 Medications Medications Current Medications Acetaminophen (Acetaminophen 325 Mg Tablet) 650 mg PO Q6H PRN PRN Reason: Headache/Pain Mild Scale (1-3) Al Hydroxide/Mg Hydroxide (Magnesium Hydrox/Alum Hydrox 30 Ml Oral.Susp) 30 ml PO Q6H PRN PRN Reason: Heartburn/Nausea Bupropion HCl (Bupropion Hcl Xl 300 Mg Tab.Er.24h) 300 mg PO DAILY OLIVE Last Admin: 06/19/21 09:18 Dose: 300 mg Documented by: Hydroxyzine HCl (Hydroxyzine Hcl 25 Mg Tablet) 25 mg PO TID PRN PRN Reason: Anxiety Last Admin: 06/19/21 21:01 Dose: 25 mg Documented by: Magnesium Hydroxide (Milk Of Magnesia 30 Ml Oral.Susp) 30 ml PO DAILY PRN PRN Reason: Constipation Nicotine Polacrilex (Nicotine Polacrilex 2 Mg Gum) 4 mg BUCCAL Q2H PRN PRN Reason: Nicotine Cravings Sertraline HCl (Sertraline Hcl 50 Mg Tablet) 50 mg PO DAILY [facility] Last Admin: 06/19/21 09:18 Dose: 50 mg Documented by: Trazodone HCl (Trazodone Hcl 50 Mg Tablet) 50 mg PO BEDTIME PRN PRN Reason: Insomnia Last Admin: 06/18/21 21:41 Dose: 50 mg Documented by: Allergies Allergies Allergy/AdvReac Type Severity Reaction Status Date / Time No Known Allergies Allergy Verified 06/13/21 20:30 Assessment & Plan Assessment & Plan (1) MDD (major depressive disorder), recurrent severe, without psychosis: Status: Acute Code(s): F33.2 - Major depressive disorder, recurrent severe without psychotic features (2) SIMRAN (generalized anxiety disorder): Status: Acute Code(s): F41.1 - Generalized anxiety disorder Assessment and Plan: Chart reviewed: labs WNL Case discussed with nursing: behaviors appropriate Case discussed with social insurance adviser: agrees with treatment plan (see below) ? IMPRESSION: Patient is a 30-year-old [place] with history of major depressive disorder, who presents for worsening depression and the face of being under medicated. Patient's depressive symptoms are chronic, starting back as far as at least adolescents and seems due to an organic proclivity towards depression, combined with a childhood home environment with a strict, critical father that whittled away self-esteem. Patient has had only limited medication trials at subtherapeutic doses and has never engaged in therapy. Patients depression has worsened over the month and especially the past 2 weeks and for the 1st time he had suicidal ideation; patient denies any intent or plan and says he would never want to kill himself but the fact that he even had the thought worried him enough to finally be open about his struggles. Patient also has generalized anxiety disorder as his worries impede function, are nearly daily and have been for over 6 months (with associated restlessness, sleep disturbance, feeling of fatigue). ? Hospital Course and clinical reasoning: Will start Wellbutrin; patient tried 100 mg in the past but at that low-dose there was no affect; patient did get sexual side effects from Zoloft and Wellbutrin was added to mitigate these effects however this caused a headache; patient however discontinued only after few days and it is quite possible that this side effect would have resolved on its own. Wellbutrin is good for depression and is low on the list for causing sexual side effects; while it can lower appetite, patient's appetite issues seem to be solely due to depression. Patient does say that Zoloft 100 mg might of been partially helpful and so it might be worth leaving on for now, even at low dose. Of note, patient explained that his SI had remained just thoughts of it being easier to be ; he denies ever having any intent or plans and says he knows he would not actually self harm. Patient explained comment about the guns saying he had never any intent, plans or urge to use the guns for self-harm and only had his girlfriend remove them from the house as he was shocked by his own SI and did not know if his depression would get worse. They are currently removed from house 06/17/21 Patient reports that his mood is better and his affect is noticeably brighter, warmer. Patient denies any SI. Also no nightmares last night. Patient reports possible side-effect of trouble sleeping and perhaps exacerbating hx of what sounds like restless leg; pt however wants to continue with current treatment and increase Wellbutrin dose to 300 mg. He thinks insomnia might have been due to starting Wellbutrin later in the day and also sleeping in a strange place; patient also does not want to risk being underdosed given his long history of severe depression. He will monitor for restless leg. Patient expresses hope that he can be discharged Sunday. Patient has no history of suicide attempt and he has a strong supportive relationship with his girlfriend; even during the severe depression with SI he says he never had any intent or plans; in an effort to be responsible he had his girlfriend remove the guns from his house (which is confirmed), not because he had any thoughts or intent to self-harm, but was shocked by his own SI, did know if his depression would get worse and did not want to risk having them available. Patient is future oriented his mood is better current medication which so far he is tolerating well enough. If patient remains stable he will very likely be ready for discharge soon and able to continue treatment as an outpatient DX: MDD, recurrent, severe without psychosis SIMRAN ?r/o Restless leg PLAN: Pt on CV Q15min checks -INCREASE to Wellbutrin XL 300 mg q.day (starting 06/18/21); patient does not want to risk being underdosed given history of depression -continue Zoloft 50 mg; the last time patient tried to taper off Zoloft he got discontinuation syndrome; will leave this on for now so as to eliminate variables when trying to assess for side effects -DC BuSpar stay: Patient has not yet taken; will see if monotherapy can work -consider prazosin: Patient has nightmares and wakes up anxious nearly every morning ?-Dye Machine Operator discussed risks/side effects of medication regimen, but not limited to priaprism; patient communicated understanding of benefits, risks and side-effec ts of medications and wants to continue with regimen. -Current doses appear appropriate; will continue to monitor and titrate as clinical determined. ?-Tobacco Use treatment offered/provided: yes ?GOALS OF TREATMENT/TEAM DISCUSSIONS: Case discussed with nursing staff and with social insurance adviser ANA and blurb writer discussed treatment plan with patient; tentatively agree on dc sunday 06/18- continue per primary treatment team 06/19 continue per primary treatment team ? I spent minutes with the patient and/or on the patient floor today, greater than?50% of which was spent counseling/coordinating care. Reason for contiued inpatient stay Substantial Risk for: stable for discharge
[2021-06-19 17:40] VITALS: BP 100/58; PULSE 92; TEMP 36.6
[2021-06-19] MEDS: hydrOXYzine HCL 25 MG TABLET PO (21:01)
[2021-06-20] MEDS: Sertraline HCL 50 MG TABLET PO (09:27)
[2021-06-20] MEDS: buPROPion HCl XL 300 MG TAB.ER.24H PO (09:27)
--- NOTE | 2021-06-20 09:55 | PM.PSYDC ---
DS: Providers Provider Date of Service: 06/20/21 Date of admission: 06/15/21 14:38 Date of discharge: 06/20/21 Primary care physician: Daysi Jacobs NP Attending physician on admission: Harsh Ann Attending physician on discharge: Harsh Ann DS: Diagnosis Discharge Diagnosis (1) MDD (major depressive disorder), recurrent severe, without psychosis: Status: Acute (2) SIMRAN (generalized anxiety disorder): Status: Acute DS: Medications Discharge Medications Home Medications: Previous Rx's Medication Instructions Recorded bupropion HCl 300 mg 24 hr tablet, 300 mg PO DAILY 30 Days #30 tab 06/20/21 extended release hydroxyzine HCl 25 mg tablet 25 mg PO TID PRN 30 Days #60 tab 06/20/21 sertraline 50 mg tablet 50 mg PO DAILY 30 Days #30 tab 06/20/21 trazodone 50 mg tablet 50 mg PO BEDTIME PRN 30 Days #45 06/20/21 tab Mental Status Exam Mental Status Exam Narrative: Pt is alert and oriented; behavior is cooperative, friendly and calm; patient is not in distress; dressed in neat, casual attire with styled haircut and good hygiene; mood is described as better and affect congruent, noticeably warmer and intermittently smiling; eye contact appropriate; Speech is normal rate, volume and prosody and not pressured; no psychomotor agitation/retardation present; thought process is organized and goal directed; Thought content is on tx; otherwise pertinent to relevant topics and without any delusional content; denies any SI/HI. There is no evidence of perceptual disturbance. ?Patients insight and judgment are fair and adequate. Data Data Completed and Pending Completed studies during hospitalization [Text1]: 06/13/21 06/13/21 06/13/21 20:15 20:43 21:18 WBC RBC Hgb Hct MCV MCH MCHC RDW Plt Count MPV Immature Gran % (Auto) Neut % (Auto) Lymph % (Auto) Webb % (Auto) Eos % (Auto) Baso % (Auto) Lymph # (Auto) Webb # (Auto) Eos # (Auto) Baso # (Auto) Abs Immat Gran (auto) Absolute Neuts (auto) Absolute Nucleated RBC Nucleated RBC % (auto) Sodium Potassium Chloride Carbon Dioxide Anion Gap BUN Creatinine Estim Creat Clear Calc Estimated GFR Random Glucose Calcium Total Bilirubin Direct Bilirubin AST ALT Alkaline Phosphatase Total Protein Albumin TSH Urine Opiates Screen Not Detected Urine Fentanyl Screen Not Detected Ur Barbiturates Screen Not Detected Ur Phencyclidine Scrn Not Detected Ur Amphetamines Screen Not Detected U Benzodiazepines Scrn Not Detected Urine Cocaine Screen Not Detected U Marijuana (THC) Screen Not Detected Ethyl Alcohol < 10 COVID-19 (MARTIR) Negative COVID-19 Clin Com See Note 06/13/21 06/13/21 06/15/21 21:18 21:18 14:13 WBC 8.4 RBC 4.84 Hgb 15.1 Hct 42.7 MCV 88.2 MCH 31.2 MCHC 35.4 RDW 11.8 Plt Count 199 MPV 9.7 Immature Gran % (Auto) 0.2 Neut % (Auto) 60.6 Lymph % (Auto) 27.3 Webb % (Auto) 9.4 Eos % (Auto) 1.9 Baso % (Auto) 0.6 Lymph # (Auto) 2.3 Webb # (Auto) 0.8 Eos # (Auto) 0.2 Baso # (Auto) 0.1 Abs Immat Gran (auto) 0.02 Absolute Neuts (auto) 5.1 Absolute Nucleated RBC 0.000 Nucleated RBC % (auto) 0.0 Sodium 137 Potassium 4.0 Chloride 106 Carbon Dioxide 22 Anion Gap 13 BUN 15 Creatinine 0.79 Estim Creat Clear Calc 115.2 Estimated GFR > 60 Random Glucose 95 Calcium 9.8 Total Bilirubin Direct Bilirubin AST ALT Alkaline Phosphatase Total Protein Albumin TSH Urine Opiates Screen Urine Fentanyl Screen Ur Barbiturates Screen Ur Phencyclidine Scrn Ur Amphetamines Screen U Benzodiazepines Scrn Urine Cocaine Screen U Marijuana (THC) Screen Ethyl Alcohol COVID-19 (MARTIR) Negative COVID-19 Clin Com See Note 06/16/21 08:02 WBC RBC Hgb Hct MCV MCH MCHC RDW Plt Count MPV Immature Gran % (Auto) Neut % (Auto) Lymph % (Auto) Webb % (Auto) Eos % (Auto) Baso % (Auto) Lymph # (Auto) Webb # (Auto) Eos # (Auto) Baso # (Auto) Abs Immat Gran (auto) Absolute Neuts (auto) Absolute Nucleated RBC Nucleated RBC % (auto) Sodium Potassium Chloride Carbon Dioxide Anion Gap BUN Creatinine Estim Creat Clear Calc Estimated GFR Random Glucose Calcium Total Bilirubin 0.6 Direct Bilirubin 0.3 AST 12 ALT 14 Alkaline Phosphatase 45 Total Protein 6.3 L Albumin 4.2 TSH 1.76 Urine Opiates Screen Urine Fentanyl Screen Ur Barbiturates Screen Ur Phencyclidine Scrn Ur Amphetamines Screen U Benzodiazepines Scrn Urine Cocaine Screen U Marijuana (THC) Screen Ethyl Alcohol COVID-19 (MARTIR) COVID-19 Clin Com DS: Summary Hospital Course Hospital Course: Patient is a 30-year-old [place] with history of major depressive disorder, who presents for worsening depression and the face of being under medicated. Patient's depressive symptoms are chronic, starting back as far as at least adolescents and seems due to an organic proclivity towards depression, combined with a childhood home environment with a strict, critical father that whittled away self-esteem.? Patient has had only limited medication trials at subtherapeutic doses and has never engaged in therapy.? Patients depression has worsened over the month and especially the past 2 weeks and for the 1st time he had suicidal ideation; patient denies any intent or plan and says he would never want to kill himself but the fact that he even had the thought worried him enough to finally be open about his struggles.? Patient also has generalized anxiety disorder as his worries impede function, are nearly daily and have been for over 6 months (with associated restlessness, sleep disturbance, feeling of fatigue). ?Hospital Course and clinical reasoning: Will start Wellbutrin; patient tried 100 mg in the past but at that low-dose there was no affect; patient did get sexual side effects from Zoloft and Wellbutrin was added to mitigate these effects however this caused a headache; patient however discontinued only after few days and it is quite possible that this side effect would have resolved on its own.? Wellbutrin is good for depression and is low on the list for causing sexual side effects; while it can lower appetite, patient's appetite issues seem to be solely due to depression.? Patient does say that Zoloft 100 mg might of been partially helpful and so it might be worth leaving on for now, even at low dose.? Of note, patient explained that his SI had remained just thoughts of it being easier to be ; he denies ever having any intent or plans and says he knows he would not actually self harm.? Patient explained comment about the guns saying he had never any intent, plans or urge to use the guns for self-harm and only had his girlfriend remove them from the house as he was shocked by his own SI and did not know if his depression would get worse.? They are currently removed from house 06/17/21 Patient reports that his mood is better and his affect is noticeably brighter, warmer.? Patient denies any SI.? Also no nightmares last night.? Patient reports possible side-effect of trouble sleeping and perhaps exacerbating hx of what sounds like restless leg; pt however wants to continue with current treatment and increase Wellbutrin dose to 300 mg.? He thinks insomnia might have been due to starting Wellbutrin later in the day and also sleeping in a strange place; patient also does not want to risk being underdosed given his long history of severe depression.? He will monitor for restless leg.? Patient expresses hope that he can be discharged Sunday.? Patient has no history of suicide attempt and he has a strong supportive relationship with his girlfriend; even during the severe depression with SI he says he never had any intent or plans; in an effort to be responsible he had his girlfriend remove the guns from his house (which is confirmed), not because he had any thoughts or intent to self-harm, but was shocked by his own SI, did know if his depression would get worse and did not want to risk having them available.? Patient is future oriented his mood is better current medication which so far he is tolerating well enough.? Patient felt stable and remained without any SI, depression and anxiety improved. He was with good behavioral and impulse control throughout his stay in the unit, appropriate with peers and staff, attending groups and forthcoming during interviews. Patient asked for discharge, wanting to return home to his supportive long-term girlfriend and attend the outpatient partial program. Patient was not in imminent risk for harm to self or others. He had maximized the benefits available to him on the inpatient unit and was appropriate To continue his treatment in the community. His request for discharge honored. Time spent discussing smoking cessation with patient: 3 to 10 minutes Status at Discharge Functional status at discharge: independent ambulation Overall status at discharge: patient is back to baseline Time Spent with Patient Time attestation: Total time spent providing and/or coordinating discharge services: Time spent: Less than 30 minutes Discharge Plan Discharge Patient Disposition: Home, Self-Care Discharge Diagnosis: MDD, recurrent, severe w/out psychotic features in partial remission Referrals: PHP: [facility] [Other] - 06/27/21 12:00 pm (*Telehealth-you will receive an email with instructions and a link to join your intake appointment*) Therapist: Nish Hayes ([facility]) [Other] - 06/21/21 9:30 am (Telehealth) Psych Prescriber: Sunita Wall ([facility]) [Other] - 07/18/21 1:00 pm (*Virtual/video- you will be sent an email with instructions on how to download the lindsay and will receive another email with link to join appointment*) Psych Prescriber: Sunita Wall ([facility]) [Other] - 08/08/21 12:30 pm (*Virtual/video- you will be sent an email with link to join appointment*) Daysi Jacobs NP [Primary Care Provider] - 1 Week Discharge Medications: Discontinued buspirone 5 mg tablet 1 tab PO TID 0RF sertraline 50 mg tablet 1 tab PO DAILY 0RF No Action mirtazapine [Remeron] 15 mg tablet 7.5 mg PO BEDTIME Qty: 14 0RF escitalopram oxalate [Lexapro] 10 mg Tablet 10 mg PO DAILY 0RF cyproheptadine 4 mg tablet See Rx Instructions .ROUTE .COMPLEX PRN (Reason: withdrawal symptoms) Qty: 28 0RF Rx Instructions: Take 2mg Q6 hours as needed for withdrawals, after 3 days can take 4mg Q 6 hours as needed for withdrawals. Discharge Orders: Discharge Order (Routine); Ordered 06/20/21 Ordered By: Harsh Ann Diet: regular diet Activity on Discharge: As tolerated Stand Alone Forms: Patient Portal Discharge page Care Plan Goals: Maintain mood and safe behaviors Take medications as prescribed Continue to pursue sobriety Practice coping skills Continue with outpatient providers and reach out to them as needed Health Concerns: Mood stability and behaviors Plan of Treatment: Follow up with your psychiatric provider and other outpatient providers regarding above concerns Take medications as prescribed Assessment: Risk assessment at time of discharge:? Patient was interviewed prior to discharge and found to be fully oriented and without any SI or HI. Patient has insight and demonstrates good judgment in terms of wanting to pursue treatment. Patient is not in imminent risk of harm to self or others and has a safety plan that includes presenting to the closest ER or calling 911 if feeling unsafe.? Patient has been observed closely by nursing and unit staff throughout admission; patient has not engaged in any behaviors that suggest dangerousness to self or others and has demonstrated appropriate behaviors and impulse control Discharge Date/Time: 06/20/21 11:50
== END 2021-06-20 11:50 | disposition home or self-care (01) | DRG 751 ==
LOC: HO.ED 06-14 01:17 → HO.PM5 06-17 15:59
PROVIDERS: Nurse Practitioner Family; Physician Assistant; Admitting Provider Psychiatry & Neurology Psychiatry; Emergency Provider Internal Medicine; PCP Nurse Practitioner Family; Visit Provider Psychiatry & Neurology Psychiatry
DX: F33.2 Major depressive disorder, recurrent severe without psychotic features (principal); F41.1 Generalized anxiety disorder; Z20.822 Contact with and (suspected) exposure to COVID-19; Z79.899 Other long term (current) drug therapy
CPT/HCPCS: 36415; 80048; 80076; 80307; 82077; 84443; 85025; 87635; 93005; 99285

== ENCOUNTER 2021-06-30 11:00 | Outpatient (RCR) | payer OTHER, SELFPAY ==
--- NOTE | 2021-06-22 10:00 | PM.EVENT ---
Event Note Date of Service: 06/22/21 Event Note: Patient discharged on 06/20/2019 to Call medical underwriter and reported that since coming home he has been having panic attacks during the day and at nightMares during the night. Manager Account Management and patient had discussed medication for this while he was on the unit but since he had was feeling better at the time and was not having panic or nightmares clonidine was never started. Manager Account Management agreed to start clonidine 0.1 mg t.i.d. p.r.n. and explained patient to take 1/2 to 1 tablet up to 3 times a day as needed for anxiety, leaving about 4 hours in between doses. Manager Account Management reviewed risks and side effects with patient who understood, asked questions and agreed to continue with this medication. Manager Account Management also discussed with patient to increase Zoloft to 75 mg for now and to discuss this further once he starts the partial program on 06/27/2021. Manager Account Management discussed the risks/side effects of Zoloft and in combination with Wellbutrin, a combination he has been on before, and again patient understood felt comfortable with this medication regimen. Patient reports that he is safe and is not suicidal and that he would present for help if he became otherwise.
[2021-06-28 14:38] VITALS: BMI 18.1
--- NOTE | 2021-06-29 11:05 | PC.ADMIT ---
Patient is a 30 year old male who was referred to [facility] by inpatient [facility] where patient was admitted d/t increase depression with SI to shoot himself or overdose on medications. Patient had access to guns however it was documented that patient did not have the combination of the safe where the gun (s) are stored. Prior to hospitalization patient reports he reached out to his GF and family regarding his thoughts and depressive symptoms and was subsequently hospitalized. Per records patient struggling with significant anxiety with episodes of vomiting secondary to panic attacks, was isolating in bed all day, and reports of significant weight loss from 167 lbs to 129 lbs x 8 months. Patient reports current weight of 134 lbs. Patient continues to struggles with anxiety and depression. Denied SI or thoughts to harm himself currently. Denied plans or intent to kill or harm himself. Asked patient if he currently had access to guns and he stated his brother took them out of the house so he does not have access. Patient reports his GF, mother and brother are supportive. Asked patient if he started to feel unsafe or having thoughts as he did prior to hospitalization would he agree to reach out to his family/GF again and he agreed. He is taking a leave of absence from work to work on his mental health. Patient also reports recent medication changes per Dr Ann. Patient reports Hydroxyzine, Trazodone, Bupropion, Sertraline and Clonidine have been discontinued and patient started on Lexapro yesterday. Patient also stated he was smoking marijuana all day every day however quit a month ago on his own as he did not want to continue smoking marijuana and for financial reasons. Patient presents with depressed mood and affect. Soft spoken. Calm and cooperative during the assessment. Medications reconciled with patient and patient's pharmacy. Patient reports taking medications as prescribed.
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
--- NOTE | 2021-06-30 11:14 | PC.NURSE ---
Ricardo called me this morning and I spoke to him and his girlfriend. He reports that for the past 2 mornings upon wakening he has been having suicidal thoughts to take his medications and this has been scaring him and he doesn't like it. He stated as the day goes on he feels better and does not have the thoughts. He does not want to go to the hospital. He denied a plan or intent to kill himself. Ricardo and his girlfriend agreed to have Ricardo's GF lock up his medications and administer them for now until he feels more stable. Also Ricardo agreed to talk about having suicidal thoughts in group so he can get support from others regarding this and coping skills to deal with the distressing thoughts. Ricardo also agreed to meet with Janene Duran NP to discuss medications. Also I confirmed with Ricardo again and his GF Roseanna that the guns have been removed from the house and they both stated the guns have been removed from the house and Ricardo does not have access to them. [facility] staff are aware of the aforementioned information.
--- NOTE | 2021-06-30 16:40 | HO.PHPPROGNO ---
Subjective Subjective Date of Service: 06/30/21 Reason For Visit: Anxiety D/o, Depressive D/o, Alcohol Use D/o Guardianship: No Medical Problems Affecting Mental Status: No Interim History: Reports continued depressed mood with SI. Reports SI upon wakening since he has been discharge from hospital. Reports woke up this morning, thought about overdosing on his medications. Reports that the SI subside as the day progresses. Reports crisis eval completed today in his home, was not determined to need inpatient level of care at this time. Reports ongoing marijuana withdrawals and cravings. Medication Compliance: Yes Side effects from medications: No Attending Groups: Yes Review of Systems Acute medical concerns: No Medical Review of Systems: unchanged Review of Systems Review of Systems Yes all other systems are reviewed and are negative Constitutional: Reports no additional constitutional complaints Psychiatric: Reports anxiety, Reports change in appetite (Poor appetite), Reports hopelessness, Reports anhedonia and Reports suicidal ideation Mental Status Exam Mental Status Exam Narrative: Well-developed, well-nourished male. Depressed, anxious mood and affect. Active SI this a.m., has since subsided. Tearful during encounter. No involuntary movements noted, motor activity calm. Patient Appearance: Well Grooomed, Fatigued and Appropriate Patient Orientation: Person, Place, Time and Situation Level of Consciousness: Awake and Alert Patient Behavior: Cooperative, Anxious, Good Eye Contact and Crying (Tearful at times during encounter.) Mood Description: Depressed and Anxious Affect Description: Depressed and Anxious Patient Cognition Impaired: No Ability to Follow Directions: Excellent Speech Pattern: Clear, Appropriate, Spontaneous Speech and Coherent Memory Description: Intact Hallucinations: None Thought Process: Intact and Rumination Thought Content: positive for Suicidal Ideation (SI upon wakening, subsided as day has progressed. ) Depressive Symptoms: Increased Anxiety, Difficulty Sleeping, Changes in Appetite, Loss of Int. in Activity, Feelings of Worthlessness, Hopelessness, Feelings of Guilt, Unhappiness, Increased Fatigue, Thoughts of /Suicide, Low Self Esteem and Difficulty Concentrating Judgement: Fair Diagnostics Vital Signs (24Hr): BMI result Body Mass Index 18.1 Assessment & Plan Assessment & Plan (1) MDD (major depressive disorder), recurrent severe, without psychosis: Status: Acute Code(s): F33.2 - Major depressive disorder, recurrent severe without psychotic features Assessment and Plan: Client continues with severe depressive symptoms, awakening daily since he was discharged from hospital with thoughts of suicide. This morning he reported that he had thought about taking a bottle of his medications to overdose. He also reports that he his appetite has decreased since discharge from hospital, and he feels it is directly related to his level of depression. Crisis went to his home today and met with him. He was determined to not need hospital level of care at this time. He is not alone, as his girlfriend is present in the home. She has agreed to hold his medications and assist with administering. Client states he does not want to come into the hospital, as he felt like ?a caged animal? while here. Client was tearful, states he has been taking the Lexapro 10 mg for 4 days. He started Remeron 2 nights ago. Medication education was provided regarding length of time to notice affect. Client is also suffering from marijuana withdrawals. He states it has been over a month since his last use. He does report however he was using daily from the moment he woke up until he went to bed. He reports increased anxiety, stress intolerance since cessation of marijuana. Client states that most troubling concern for him currently is that he feels suicidal immediately upon wakening in the morning. He is asking for medication in order to assist with his current depressive sx, anxiety, and marijuana withdrawals. (2) SIMRAN (generalized anxiety disorder): Status: Acute Code(s): F41.1 - Generalized anxiety disorder (3) Cannabis use disorder, severe, dependence: Status: Acute Code(s): F12.20 - Cannabis dependence, uncomplicated Assessment and Plan: Discussed possible medication options, including cyproheptadine, and gabapentin, including risks, benefits, side effects, and alternatives. Client was in agreement to trial cyproheptadine. 1. Start cyproheptadine 2mg every 6 hours prn X 3 days, and then increase dose to 4mg every 6 hours prn. 2. Continue with current doses of Lexapro and Remeron as prescribed. 3. Continue to closely follow client, with follow-up visits as needed. 4. Continue with current [facility] plan of care. Patient educated on: diagnosis, medication risk/benefits, substance abuse and therapeutic strategies Informed Consent: understands Reason for contiued partial hosp. stay Substantial Risk for: harm to self, inability to function, rapid decompensation and med/psych decompensation Certification I certify that partial hospital treatment is medically necessary due to the symptoms and problems resulting from the patient's mental illness and the failure to treat the patient at the partial hospital level of care would likely result in the patient requiring inpatient psychiatric care which could not be prevented at a less intensive level of care. I spent minutes with the patient and/or on the patient floor today, greater than?50% of which was spent counseling/coordinating care. Discharge Plan Discharge Attending provider: Jason Avelar Primary Care Provider: Daysi Jacobs Medications: New mirtazapine [Remeron] 15 mg tablet 7.5 mg PO BEDTIME Qty: 14 RF: 0 cyproheptadine 4 mg tablet See Rx Instructions .ROUTE .COMPLEX PRN (Reason: withdrawal symptoms) Qty: 28 RF: 0 Discontinued bupropion HCl 300 mg Tablet Extended Release 24 Hr 300 mg PO DAILY 30 Days Qty: 30 RF: 0 hydroxyzine HCl 25 mg Tablet 25 mg PO TID PRN (Reason: Anxiety) 30 Days Qty: 60 RF: 0 sertraline 50 mg tablet 50 mg PO DAILY 30 Days Qty: 30 RF: 0 clonidine HCl 0.1 mg tablet 0.1 mg PO TID PRN (Reason: anxiety) 30 Days Qty: 90 RF: 0 No Action escitalopram oxalate [Lexapro] 10 mg Tablet 10 mg PO DAILY RF: 0 Referrals: Daysi Jacobs, [facility] [Primary Care Provider] - 1 Week Stand Alone Forms: Patient Portal Discharge page Telehealth Telehealth Location of provider rendering services: practice address Location of patient: address on file Patient Identification confirmed using: Name, : Yes Telehealth method: video Patient verbally consented to treatment: Yes Patient verbally consented to billing insurance company: Yes Patient informed of any privacy concerns related to visit: Yes Time spent with patient (mins): 20
--- NOTE | 2021-07-01 08:58 | PC.NURSE ---
case opened in tx team
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
--- NOTE | 2021-07-04 08:36 | PC.NURSE ---
Ricardo came to the ED on 07/01/21 and was evaluated by crisis. Patient transferred to [facility] for treatment. Team is aware and patient will be discharged from the program.
== END 2021-07-04 08:23 | disposition home or self-care (01) ==
LOC: HO.PHPA 11:00
PROVIDERS: PCP Nurse Practitioner Family; Visit Provider Psychiatry & Neurology Psychiatry
DX: F33.2 Major depressive disorder, recurrent severe without psychotic features (principal); F41.1 Generalized anxiety disorder; F12.20 Cannabis dependence, uncomplicated; Z79.899 Other long term (current) drug therapy
CPT/HCPCS: 90791; 90853

== ENCOUNTER 2021-07-01 11:11 | Emergency (ER) | payer OTHER, SELFPAY ==
[2021-07-01 11:13] VITALS: BP 125/82; PULSE 70; RESP 18; TEMP 37; O2SAT 100; BMI 18.3
--- NOTE | 2021-07-01 11:37 | ED.PSYCH ---
HPI - Psych General Chief Complaint: Psychiatric Symptoms <ARIK Neil - Last Filed: 07/01/21 14:45> Stated Complaint: CRISIS <ARIK Neil - Last Filed: 07/01/21 14:45> Time Seen by Provider: 07/01/21 11:37 <ARIK Neil - Last Filed: 07/01/21 14:45> Source: patient <ARIK Neil - Last Filed: 07/01/21 14:45> Mode of arrival: ambulatory <ARIK Neil Last Filed: 07/01/21 14:45> Limitations: no limitations <ARIK Neil Last Filed: 07/01/21 14:45> History of Present Illness HPI Narrative: This is a 30-year-old male past medical history significant for major depressive disorder, generalized anxiety disorder presenting to the emergency department with complaints of suicidal ideation with plan and increasing depression over the last few months despite recent medication changes. Patient's plan for suicide is to overdose on all his pills. He tells me he was recently discharged from here, however he still not feeling better. He was discharged and placed in the partial program however patient tells me does not feel like partial is helping him. He tells me that he was recently started on Lexapro which his helped his anxiety however has worsened his depression. He tells me that in the morning when he wakes up he feels like he wants to end his life by overdosing on pills, he reports little energy in pleasure in daily things. He has been taking all his medications as prescribed. He denies visual, auditory and tactile hallucinations. He denies drugs, alcohol and tobacco use. He denies chest pain, shortness of breath, fevers, chills, nausea, vomiting, diarrhea. No medical complaints at this time. <ARIK Neil Last Filed: 07/01/21 14:45> MD complaint: suicidal ideation, feels depressed and anxiety <ARIK Neil Last Filed: 07/01/21 14:45> Onset (ago): month(s) (2) <ARIK Neil Last Filed: 07/01/21 14:45> Duration: constant <ARIK Neil Last Filed: 07/01/21 14:45> History of same: Yes <ARIK Neil - Last Filed: 07/01/21 14:45> Relieving factors: none <ARIK Neil Last Filed: 07/01/21 14:45> Exacerbating factors: none <ARIK Neil Last Filed: 07/01/21 14:45> Associated psychiatric symptoms: none <ARIK Neil Last Filed: 07/01/21 14:45> Associated symptoms: denies other symptoms <ARIK Neil - Last Filed: 07/01/21 14:45> Treatments prior to arrival: none <ARIK Neil Last Filed: 07/01/21 14:45> If self harm: admits thoughts of self harm and has plan (OD on pills) <ARIK Neil Last Filed: 07/01/21 14:45> Related Data Home Medications: Home Medications Medication Instructions Recorded Confirmed escitalopram oxalate 10 mg tablet 10 mg PO DAILY 06/28/21 06/28/21 (Lexapro) Previous Rx's Medication Instructions Recorded mirtazapine 15 mg tablet (Remeron) 7.5 mg PO BEDTIME #14 tab 06/28/21 cyproheptadine 4 mg tablet See Rx Instructions .ROUTE 06/30/21 .COMPLEX PRN #28 tab <ARIK Neil Last Filed: 07/01/21 14:45> Allergies/Adverse Reactions: Allergies Allergy/AdvReac Type Severity Reaction Status Date / Time No Known Allergies Allergy Verified 06/13/21 20:30 <ARIK Neil Last Filed: 07/01/21 14:45> Review of Systems Review of Systems: Constitutional : No Weight loss, No Fever, No Chills, No Fatigue, No Malaise ENT/Mouth : No sore throat, No Rhinorrhea Eyes: No Eye Pain, No Swelling, No Redness Cardiovascular : No Chest Pain, No SOB, No Dyspnea on Exertion, No Orthopnea, No Edema, No Palpitations Respiratory : No Cough, No Sputum, No Wheezing Gastrointestinal : No Nausea, No Vomiting, No Diarrhea, No Constipation, No abdominal Pain, No Hematochezia, No Melena Genitourinary : No Dysuria, No Urinary Frequency, No Hematuria, Musculoskeletal : No joint pain, No Myalgias, No Joint Swelling Skin : No Skin Lesions, No rash Neuro : No Weakness, No Numbness, No Dizziness, No Headache Psych : + Anxiety/Panic, + Depression, + SI, No HI All other systems reviewed and are negative <ARIK Neil - Last Filed: 07/01/21 14:45> Yes all other systems are reviewed and are negative <ARIK Neil - Last Filed: 07/01/21 14:45> [facility] Past Medical History Attestation statement: The following information was validated with the patient. <ARIK Neil - Last Filed: 07/01/21 14:45> Source: old records reviewed and nursing notes reviewed <ARIK Neil - Last Filed: 07/01/21 14:45> Medical History: Medical History Anxiety Depression SIMRAN (generalized anxiety disorder) MDD (major depressive disorder), recurrent severe, without psychosis <ARIK Neil - Last Filed: 07/01/21 14:45> Social History Social History: Social History Household Members: Significant Other and Children Household Members Other:: None Housing: Apartment Do you presently have visiting nurse or other home services: No Patient Tobacco Use Status: Never used Tobacco Substance Use Type: Marijuana Advance Directives: No Advance Directives Information Provided: No Healthcare Proxy: No Guardian: No service: Yes Sexual orientation: Straight/Heterosexual <ARIK Neil - Last Filed: 07/01/21 14:45> Physical Exam Vital Signs: Vital Signs: Last Vital Signs Temp 98.6 F 07/01/21 11:13 Pulse 70 07/01/21 11:13 Resp 18 07/01/21 11:13 BP 125/82 07/01/21 11:13 Pulse Ox 100 07/01/21 11:13 BMI result Body Mass Index 18.3 VSS <ARIK Neil - Last Filed: 07/01/21 14:45> Vital Signs: Last Vital Signs Temp 98.6 F 07/01/21 11:13 Pulse 70 07/01/21 11:13 Resp 18 07/01/21 11:13 BP 125/82 07/01/21 11:13 Pulse Ox 100 07/01/21 11:13 BMI result Body Mass Index 18.3 <ARIK Moore - Last Filed: 07/01/21 15:36> Appearance: Alert.? Oriented X3.? No acute distress.? Head: Normocephalic, atraumatic, no step-offs or deformities Eyes: Pupils equal, round and reactive to light.? ENT: Pharynx normal.? Neck: Normal inspection.? Neck supple.? CVS: Normal heart rate and rhythm.? Pulses normal.? Respiratory: No respiratory distress.? Breath sounds normal.? Abdomen: Soft and nontender.? Skin: Skin warm and dry.? Normal skin color.? Normal skin turgor.? Extremities: No lower extremity edema.? No calf ttp. 5/5 strength to bilateral upper and lower extremities Back: No midline tenderness, no C-spine tenderness, full range of motion, no CVA tenderness bilaterally Neuro: Oriented X 3.? No motor deficit.? No sensory deficit.CN 2-12 intact <ARIK Neil - Last Filed: 07/01/21 14:45> Course Reevaluation(s) Reevaluation #1: Labs appear to be wnl, no acute changes when compared to previous laboratory studies. Urine tox negative ethanol negative. COVID negative At this time patient will be placed in physician observation to allow more time for the care team to assess the patient. Time observation was started patient's vital signs were stable, patient no complaints. Calm and cooperative. Will continue to monitor. <ARIK Neil - Last Filed: 07/01/21 14:45> Time: 12:06 <ARIK Neil - Last Filed: 07/01/21 14:45> Reevaluation #2: Patient has been accepted to [facility]. Transport being arranged now. Physician observation discontinued at this time. Dispo to Es[facility] for ongoing care. <ARIK Moore - Last Filed: 07/01/21 15:36> Time: 15:36 <ARIK Moore - Last Filed: 07/01/21 15:36> MDM - Psych MDM Narrative Medical decision making narrative: 1141 30 yo M pmhx SIMRAN,MDD presents to ED w/ increasing depression and SI w/ plan to OD on his medications. Denies visual, auditory and tactile hallucinations. Denies drugs, alcohol and tobacco use. Denies HI. Was recently put and partial which is not been beneficial to patient. He reports that he has a psychiatric intake exam on July 06, 2021 and he is currently meeting with a therapist twice a week. Recent medication changes have been made by Dr. Ann per patient PE- benign Plan- [facility], labs, PAPPAS <ARIK Neil - Last Filed: 07/01/21 14:45> Medical Records Attestation: I reviewed the patient's medical records. <ARIK Neil - Last Filed: 07/01/21 14:45> Lab Data Attestation: I reviewed the patient's lab results. <ARIK Neil - Last Filed: 07/01/21 14:45> Result diagrams: : 07/01/21 11:45 07/01/21 11:45 <ARIK Neil - Last Filed: 07/01/21 14:45> Labs: Lab Results 07/01/21 07/01/21 07/01/21 Range/Units 11:34 11:34 11:45 WBC 8.7 (4.8-10.8) X10*3/uL RBC 5.32 (4.60-5.80) X10*6/uL Hgb 16.4 (14.0-18.0) g/dl Hct 47.8 (42.0-52.0) % MCV 89.8 (80.0-98.0) fL MCH 30.8 (27.0-33.0) pg MCHC 34.3 (31.0-36.0) g/dl RDW 12.0 (11.0-16.0) % Plt Count 227 (160-400) X10*3/uL MPV 9.3 L (9.4-12.4) fL Immature Gran % (Auto) 0.5 H (0.0-0.4) % Neut % (Auto) 72.1 (45-73) % Lymph % (Auto) 18.4 L (20-40) % Sterling % (Auto) 6.7 (2-11) % Eos % (Auto) 1.8 (0-4) % Baso % (Auto) 0.5 (0-2) % Lymph # (Auto) 1.6 (1.2-4.9) X10*3/uL Sterling # (Auto) 0.6 (0.1-1.2) X10*3/uL Eos # (Auto) 0.2 (0.0-0.4) X10*3/uL Baso # (Auto) 0.0 (0.0-0.2) X10*3/uL Abs Immat Gran (auto) 0.04 H (0.00-0.03) X10*3/uL Absolute Neuts (auto) 6.3 (2.0-8.3) x10*3/uL Absolute Nucleated RBC 0.000 (0.0-0.012) X10*3/uL Nucleated RBC % (auto) 0.0 (0.0-0.2) /100WBC Sodium (135-145) mmol/L Potassium (3.3-5.1) mmol/L Chloride (96-108) mmol/L Carbon Dioxide (22-29) mmol/L Anion Gap (12-20) BUN (9-16) mg/dL Creatinine (0.5-1.4) mg/dL Estim Creat Clear Calc Estimated GFR Random Glucose (60-115) mg/dL Calcium (8.4-10.2) mg/dL Total Bilirubin (0.0-1.0) mg/dL AST (5-37) U/L ALT (0-40) U/L Alkaline Phosphatase (39-117) U/L Total Protein (6.5-8.0) g/dL Albumin (3.5-5.0) g/dL Urine Opiates Screen Not Detected (Not Detect) Urine Fentanyl Screen Not Detected (Not Detect) Ur Barbiturates Screen Not Detected (Not Detect) Ur Phencyclidine Scrn Not Detected (Not Detect) Ur Amphetamines Screen Not Detected (Not Detect) U Benzodiazepines Scrn Not Detected (Not Detect) Urine Cocaine Screen Not Detected (Not Detect) U Marijuana (THC) Screen Not Detected (Not Detect) Ethyl Alcohol mg/dL COVID-19 (MARTIR) Negative (Negative) COVID-19 Clin Com See Note 07/01/21 07/01/21 Range/Units 11:45 11:45 WBC (4.8-10.8) X10*3/uL RBC (4.60-5.80) X10*6/uL Hgb (14.0-18.0) g/dl Hct (42.0-52.0) % MCV (80.0-98.0) fL MCH (27.0-33.0) pg MCHC (31.0-36.0) g/dl RDW (11.0-16.0) % Plt Count (160-400) X10*3/uL MPV (9.4-12.4) fL Immature Gran % (Auto) (0.0-0.4) % Neut % (Auto) (45-73) % Lymph % (Auto) (20-40) % Sterling % (Auto) (2-11) % Eos % (Auto) (0-4) % Baso % (Auto) (0-2) % Lymph # (Auto) (1.2-4.9) X10*3/uL Sterling # (Auto) (0.1-1.2) X10*3/uL Eos # (Auto) (0.0-0.4) X10*3/uL Baso # (Auto) (0.0-0.2) X10*3/uL Abs Immat Gran (auto) (0.00-0.03) X10*3/uL Absolute Neuts (auto) (2.0-8.3) x10*3/uL Absolute Nucleated RBC (0.0-0.012) X10*3/uL Nucleated RBC % (auto) (0.0-0.2) /100WBC Sodium 138 (135-145) mmol/L Potassium 4.5 (3.3-5.1) mmol/L Chloride 101 (96-108) mmol/L Carbon Dioxide 28 (22-29) mmol/L Anion Gap 14 (12-20) BUN 8 L (9-16) mg/dL Creatinine 1.00 (0.5-1.4) mg/dL Estim Creat Clear Calc 95.2 Estimated GFR > 60 Random Glucose 114 (60-115) mg/dL Calcium 10.3 H (8.4-10.2) mg/dL Total Bilirubin 0.5 (0.0-1.0) mg/dL AST 17 D (5-37) U/L ALT 30 (0-40) U/L Alkaline Phosphatase 58 D (39-117) U/L Total Protein 7.7 D (6.5-8.0) g/dL Albumin 4.8 (3.5-5.0) g/dL Urine Opiates Screen (Not Detect) Urine Fentanyl Screen (Not Detect) Ur Barbiturates Screen (Not Detect) Ur Phencyclidine Scrn (Not Detect) Ur Amphetamines Screen (Not Detect) U Benzodiazepines Scrn (Not Detect) Urine Cocaine Screen (Not Detect) U Marijuana (THC) Screen (Not Detect) Ethyl Alcohol < 10 mg/dL COVID-19 (MARTIR) (Negative) COVID-19 Clin Com <ARIK Neil - Last Filed: 07/01/21 14:45> Lab Results 07/01/21 07/01/21 07/01/21 Range/Units 11:34 11:34 11:45 WBC 8.7 (4.8-10.8) X10*3/uL RBC 5.32 (4.60-5.80) X10*6/uL Hgb 16.4 (14.0-18.0) g/dl Hct 47.8 (42.0-52.0) % MCV 89.8 (80.0-98.0) fL MCH 30.8 (27.0-33.0) pg MCHC 34.3 (31.0-36.0) g/dl RDW 12.0 (11.0-16.0) % Plt Count 227 (160-400) X10*3/uL MPV 9.3 L (9.4-12.4) fL Immature Gran % (Auto) 0.5 H (0.0-0.4) % Neut % (Auto) 72.1 (45-73) % Lymph % (Auto) 18.4 L (20-40) % Sterling % (Auto) 6.7 (2-11) % Eos % (Auto) 1.8 (0-4) % Baso % (Auto) 0.5 (0-2) % Lymph # (Auto) 1.6 (1.2-4.9) X10*3/uL Sterling # (Auto) 0.6 (0.1-1.2) X10*3/uL Eos # (Auto) 0.2 (0.0-0.4) X10*3/uL Baso # (Auto) 0.0 (0.0-0.2) X10*3/uL Abs Immat Gran (auto) 0.04 H (0.00-0.03) X10*3/uL Absolute Neuts (auto) 6.3 (2.0-8.3) x10*3/uL Absolute Nucleated RBC 0.000 (0.0-0.012) X10*3/uL Nucleated RBC % (auto) 0.0 (0.0-0.2) /100WBC Sodium (135-145) mmol/L Potassium (3.3-5.1) mmol/L Chloride (96-108) mmol/L Carbon Dioxide (22-29) mmol/L Anion Gap (12-20) BUN (9-16) mg/dL Creatinine (0.5-1.4) mg/dL Estim Creat Clear Calc Estimated GFR Random Glucose (60-115) mg/dL Calcium (8.4-10.2) mg/dL Total Bilirubin (0.0-1.0) mg/dL AST (5-37) U/L ALT (0-40) U/L Alkaline Phosphatase (39-117) U/L Total Protein (6.5-8.0) g/dL Albumin (3.5-5.0) g/dL Urine Opiates Screen Not Detected (Not Detect) Urine Fentanyl Screen Not Detected (Not Detect) Ur Barbiturates Screen Not Detected (Not Detect) Ur Phencyclidine Scrn Not Detected (Not Detect) Ur Amphetamines Screen Not Detected (Not Detect) U Benzodiazepines Scrn Not Detected (Not Detect) Urine Cocaine Screen Not Detected (Not Detect) U Marijuana (THC) Screen Not Detected (Not Detect) Ethyl Alcohol mg/dL COVID-19 (MARTIR) Negative (Negative) COVID-19 Clin Com See Note 07/01/21 07/01/21 Range/Units 11:45 11:45 WBC (4.8-10.8) X10*3/uL RBC (4.60-5.80) X10*6/uL Hgb (14.0-18.0) g/dl Hct (42.0-52.0) % MCV (80.0-98.0) fL MCH (27.0-33.0) pg MCHC (31.0-36.0) g/dl RDW (11.0-16.0) % Plt Count (160-400) X10*3/uL MPV (9.4-12.4) fL Immature Gran % (Auto) (0.0-0.4) % Neut % (Auto) (45-73) % Lymph % (Auto) (20-40) % Sterling % (Auto) (2-11) % Eos % (Auto) (0-4) % Baso % (Auto) (0-2) % Lymph # (Auto) (1.2-4.9) X10*3/uL Sterling # (Auto) (0.1-1.2) X10*3/uL Eos # (Auto) (0.0-0.4) X10*3/uL Baso # (Auto) (0.0-0.2) X10*3/uL Abs Immat Gran (auto) (0.00-0.03) X10*3/uL Absolute Neuts (auto) (2.0-8.3) x10*3/uL Absolute Nucleated RBC (0.0-0.012) X10*3/uL Nucleated RBC % (auto) (0.0-0.2) /100WBC Sodium 138 (135-145) mmol/L Potassium 4.5 (3.3-5.1) mmol/L Chloride 101 (96-108) mmol/L Carbon Dioxide 28 (22-29) mmol/L Anion Gap 14 (12-20) BUN 8 L (9-16) mg/dL Creatinine 1.00 (0.5-1.4) mg/dL Estim Creat Clear Calc 95.2 Estimated GFR > 60 Random Glucose 114 (60-115) mg/dL Calcium 10.3 H (8.4-10.2) mg/dL Total Bilirubin 0.5 (0.0-1.0) mg/dL AST 17 D (5-37) U/L ALT 30 (0-40) U/L Alkaline Phosphatase 58 D (39-117) U/L Total Protein 7.7 D (6.5-8.0) g/dL Albumin 4.8 (3.5-5.0) g/dL Urine Opiates Screen (Not Detect) Urine Fentanyl Screen (Not Detect) Ur Barbiturates Screen (Not Detect) Ur Phencyclidine Scrn (Not Detect) Ur Amphetamines Screen (Not Detect) U Benzodiazepines Scrn (Not Detect) Urine Cocaine Screen (Not Detect) U Marijuana (THC) Screen (Not Detect) Ethyl Alcohol < 10 mg/dL COVID-19 (MARTIR) (Negative) COVID-19 Clin Com <ARIK Moore - Last Filed: 07/01/21 15:36> Critical Care Time Critical Care Time Critical Care Time: No <ARIK Neil Last Filed: 07/01/21 14:45> Discharge Plan Discharge Clinical Impression: MDD (major depressive disorder), recurrent severe, without psychosis, Acute anxiety, Suicidal ideation <ARIK Neil - Last Filed: 07/01/21 14:45> Patient Disposition: Xfer Other <ARIK Neil Last Filed: 07/01/21 14:45> Transfer Details: Patient will be going to [facility]. Accepting provider- <ARIK Neil - Last Filed: 07/01/21 14:45> Patient will be going to [facility]. Accepting provider- <ARIK Moore - Last Filed: 07/01/21 15:36> Instructions: Depression (ED), Anxiety (ED) <ARIK Neil Last Filed: 07/01/21 14:45> Additional Instructions: Take your medications as prescribed. Follow-up with your primary care provider this week. Return to the emergency department with new or worsening symptoms. In case of emergency call 911 <ARIK Neil - Last Filed: 07/01/21 14:45> Prescriptions: No Action mirtazapine [Remeron] 15 mg tablet 7.5 mg PO BEDTIME Qty: 14 RF: 0 escitalopram oxalate [Lexapro] 10 mg Tablet 10 mg PO DAILY RF: 0 cyproheptadine 4 mg tablet See Rx Instructions .ROUTE .COMPLEX PRN (Reason: withdrawal symptoms) Qty: 28 RF: 0 <ARIK Neil - Last Filed: 07/01/21 14:45> Referrals: Daysi Jacobs, SPECIALTY DEVELOPMENT CONSULTANT [Primary Care Provider] - 2 days <ARIK Neil - Last Filed: 07/01/21 14:45> Stand Alone Forms: Work/School Release <ARIK Neil - Last Filed: 07/01/21 14:45>
[2021-07-01 11:50] LABS: MANUAL DIFF FLAG NO
[2021-07-01 11:52] LABS: Basophils Percent Auto 0.5 % (0-2); Eosinophils Absolute Auto 0.2 X10*3/uL (0.0-0.4); Eosinophils Percent Auto 1.8 % (0-4); Hematocrit 47.8 % (42.0-52.0); Hemoglobin 16.4 g/dl (14.0-18.0); Imm Gran Abs Auto 0.04 X10*3/uL (0.00-0.03); Imm Gran Pct Auto 0.5 % (0.0-0.4); Lymphocytes Absolute Auto 1.6 X10*3/uL (1.2-4.9); Lymphocytes Percent Auto 18.4 % (20-40); Mean Corpuscular HGB Conc 34.3 g/dl (31.0-36.0); Mean Corpuscular Hemoglobin 30.8 pg (27.0-33.0); Mean Corpuscular Volume 89.8 fL (80.0-98.0); Mean Platelet Volume 9.3 fL (9.4-12.4); Monocytes Absolute Auto 0.6 X10*3/uL (0.1-1.2); Monocytes Percent Auto 6.7 % (2-11); Neutrophils Absolute Auto 6.3 x10*3/uL (2.0-8.3); Neutrophils Percent Auto 72.1 % (45-73); Platelet Count 227 X10*3/uL (160-400); Red Blood Count 5.32 X10*6/uL (4.60-5.80); White Blood Count 8.7 X10*3/uL (4.8-10.8)
[2021-07-01 11:59] LABS: COVID-19 Test Negative (Negative); IDNOW Serial# 9DD0AD1C
[2021-07-01 12:02] LABS: Amphetamine Screen Urine Not Detected (Not Detect); Barbiturates, Urine Not Detected (Not Detect); Benzodiazepines Screen Urine Not Detected (Not Detect); Cannabinoid Screen Urine Not Detected (Not Detect); Cocaine Screen Urine Not Detected (Not Detect); Fentanyl, urine Not Detected (Not Detect); Opiate Screen Urine Not Detected (Not Detect); Phencyclidine Screen Urine Not Detected (Not Detect)
[2021-07-01 12:06] LABS: Ethanol < 10 mg/dL
[2021-07-01 12:09] LABS: Alanine Aminotransferase 30 U/L (0-40); Albumin Level 4.8 g/dL (3.5-5.0); Alkaline Phosphatase 58 U/L (39-117); Anion Gap 14 (12-20); Aspartate Amino Transferase 17 U/L (5-37); Bilirubin Total 0.5 mg/dL (0.0-1.0); Blood Urea Nitrogen 8 mg/dL (9-16); Calcium 10.3 mg/dL (8.4-10.2); Carbon Dioxide 28 mmol/L (22-29); Chloride 101 mmol/L (96-108); Creatinine Clr Calc Pharmacy 95.2; Estimated Glomerular Filt Rate > 60; Glucose Random 114 mg/dL (60-115); Potassium 4.5 mmol/L (3.3-5.1); Sodium 138 mmol/L (135-145); Total Protein 7.7 g/dL (6.5-8.0)
--- NOTE | 2021-07-01 13:31 | PC.NURSE ---
calm and cooperative, reports si but has not done anything to hurt himself, skin wpd. alert, speech clear, nad, has been in his room since arriving, CARE team aware and plan to evaluate soon
[2021-07-01 16:04] VITALS: BP 117/81; PULSE 82; RESP 18; TEMP 36.8; O2SAT 100
--- NOTE | 2021-07-01 16:11 | PC.NURSE ---
Report given to [facility] rn. [facility] her to take patient to [facility]. patient verbalized understanding of transfer sent to facility with belongings
--- NOTE | 2021-07-01 16:57 | MHC.CARE ---
CARE Team reached out to pt's girlfriend to inform her of pt's transfer to [facility] for inpt treatment. She was grateful for the update.
== END 2021-07-01 16:10 | disposition other institution (70) ==
PROVIDERS: Emergency Medicine Emergency Medical Services; Emergency Provider Internal Medicine; PCP Nurse Practitioner Family
DX: F33.2 Major depressive disorder, recurrent severe without psychotic features (principal); R45.851 Suicidal ideations; F41.1 Generalized anxiety disorder; Z79.899 Other long term (current) drug therapy; Z20.822 Contact with and (suspected) exposure to COVID-19
CPT/HCPCS: 36415; 80053; 80307; 82077; 85025; 87635; 99283; 99285

== ENCOUNTER 2021-07-11 12:30 | Emergency (ER) | payer OTHER, SELFPAY ==
--- NOTE | 2021-07-11 12:31 | ED_ITS ---
HPI - Psych General Chief Complaint: Psychiatric Symptoms Stated Complaint: CRISIS,SI, SEC 12 BY BRAD GUERIN Time Seen by Provider: 07/11/21 12:31 Source: patient Mode of arrival: EMS Limitations: no limitations History of Present Illness MD complaint: suicidal ideation and feels depressed Onset (ago): week(s) Duration: getting worse History of same: Yes Relieving factors: none Exacerbating factors: none Context: significant life stressor Associated psychiatric symptoms: depression and suicidal ideation Associated symptoms: denies other symptoms Treatments prior to arrival: placed on mental health hold If self harm: admits thoughts of self harm Related Data Home Medications Medication Instructions Recorded Confirmed escitalopram oxalate 10 mg tablet 10 mg PO DAILY 06/28/21 06/28/21 (Lexapro) Previous Rx's Medication Instructions Recorded mirtazapine 15 mg tablet (Remeron) 7.5 mg PO BEDTIME #14 tab 06/28/21 cyproheptadine 4 mg tablet See Rx Instructions .ROUTE 06/30/21 .COMPLEX PRN #28 tab Allergies Allergy/AdvReac Type Severity Reaction Status Date / Time No Known Allergies Allergy Verified 07/11/21 12:40 Review of Systems Verdana 4l Review of Systems: Verdana 4d Verdana 4d Constitutional : No Fever, No Chills ENT/Mouth : No Ear Pain, No Nasal Congestion, No sore throat Eyes: No Eye Pain, No Swelling, No Redness Cardiovascular : No Chest Pain, No SOB Respiratory : No Cough, No Sputum, No Dyspnea GastrointestinalGastrointestinal : No Nausea, No Vomiting, No Diarrhea, No Hematochezia, No Melena Genitourinary : No Dysuria, No Urinary Frequency, No Hematuria Musculoskeletal : No Myalgias Skin : No Skin Lesions, No rash Neuro : No Weakness, No Numbness, No Paresthesias, No Dizziness, No Headache Psych : positive Anxiety, positive Depression, positive SI no HI Heme/Lymph: No Lymphadenopathy Endocrine : No Polyuria, No Polydipsia All other systems reviewed and are negative [facility] Past Medical History Medical History Anxiety Depression SIMRAN (generalized anxiety disorder) MDD (major depressive disorder), recurrent severe, without psychosis Social History Social History Household Members: Significant Other and Children Household Members Other:: None Housing: Apartment Do you presently have visiting nurse or other home services: No Patient Tobacco Use Status: Never used Tobacco Substance Use Type: Marijuana service: Yes Sexual orientation: Straight/Heterosexual Physical Exam Verdana 4l Vital Signs: Verdana 4d Verdana 4d Vital Signs: Verdana 4d Verdana 4Bd Last Vital Signs Verdana 4d [employer] Temp 97.9 F 07/11/21 12:40 [employer] Pulse 76 07/11/21 12:40 [employer] Resp 16 07/11/21 12:40 BP 125/88 07/11/21 12:40 Pulse Ox 100 07/11/21 12:40 BMI result Body Mass Index 19.0 Appearance: Alert. Oriented X3. No acute distress. Flat affect. Calm and cooperative Eyes: Pupils equal, round and reactive to light. ENT: Pharynx normal. Neck: Normal inspection. Neck supple. CVS: Normal heart rate and rhythm. Pulses normal. Respiratory: No respiratory distress. Breath sounds normal. Abdomen: Soft and non-tender. Skin: Skin warm and dry. Normal skin color. Normal skin turgor. Extremities: No lower extremity edema. No calf ttp Neuro: Oriented X 3. No motor deficit. No sensory deficit. CN2-12 intact Course Course Course Narrative: Physician observation started at 1pm. Patient placed in physician observation because the patient needed more time for bed search. At the time observation was started the patient's vitals were stable, patient is alert and oriented Neuro: nonfocal, CV RRR, Lungs clear MDM - Psych MDM Narrative Medical decision making narrative: 31 yo male with hx of depression here with c/o depression and SI section 12 at this time will need medical clearance and CARE team consult. Dispo per their recommendations. Discharge Plan Discharge Clinical Impression: Depression, Suicidal ideation Patient Disposition: Still a Patient Prescriptions: No Action mirtazapine [Remeron] 15 mg tablet 7.5 mg PO BEDTIME Qty: 14 0RF escitalopram oxalate [Lexapro] 10 mg Tablet 10 mg PO DAILY 0RF cyproheptadine 4 mg tablet See Rx Instructions .ROUTE .COMPLEX PRN (Reason: withdrawal symptoms) Qty: 28 0RF Rx Instructions: Take 2mg Q6 hours as needed for withdrawals, after 3 days can take 4mg Q 6 hours as needed for withdrawals.
[2021-07-11 12:40] VITALS: BP 112/78; BP 125/88; PULSE 72; PULSE 76; RESP 16; TEMP 36.6; O2SAT 100; BMI 19.0
[2021-07-11 13:14] LABS: COVID-19 Test Negative (Negative)
[2021-07-11 13:18] LABS: MANUAL DIFF FLAG NO
[2021-07-11 13:21] LABS: Basophils Percent Auto 0.4 % (0-2); Eosinophils Absolute Auto 0.1 X10*3/uL (0.0-0.4); Eosinophils Percent Auto 1.7 % (0-4); Hematocrit 41.6 % (42.0-52.0); Hemoglobin 14.6 g/dl (14.0-18.0); Imm Gran Abs Auto 0.02 X10*3/uL (0.00-0.03); Imm Gran Pct Auto 0.3 % (0.0-0.4); Lymphocytes Absolute Auto 1.6 X10*3/uL (1.2-4.9); Lymphocytes Percent Auto 21.8 % (20-40); Mean Corpuscular HGB Conc 35.1 g/dl (31.0-36.0); Mean Corpuscular Hemoglobin 30.7 pg (27.0-33.0); Mean Corpuscular Volume 87.4 fL (80.0-98.0); Mean Platelet Volume 9.7 fL (9.4-12.4); Monocytes Absolute Auto 0.8 X10*3/uL (0.1-1.2); Monocytes Percent Auto 10.5 % (2-11); Neutrophils Absolute Auto 4.7 x10*3/uL (2.0-8.3); Neutrophils Percent Auto 65.3 % (45-73); Platelet Count 188 X10*3/uL (160-400); Red Blood Count 4.76 X10*6/uL (4.60-5.80); White Blood Count 7.2 X10*3/uL (4.8-10.8)
[2021-07-11 13:40] LABS: Amphetamine Screen Urine Not Detected (Not Detect); Barbiturates, Urine Not Detected (Not Detect); Benzodiazepines Screen Urine Not Detected (Not Detect); Cannabinoid Screen Urine Not Detected (Not Detect); Cocaine Screen Urine Not Detected (Not Detect); Fentanyl, urine Not Detected (Not Detect); Opiate Screen Urine Not Detected (Not Detect); Phencyclidine Screen Urine Not Detected (Not Detect)
[2021-07-11 13:43] LABS: Alanine Aminotransferase 26 U/L (0-40); Albumin Level 4.5 g/dL (3.5-5.0); Alkaline Phosphatase 49 U/L (39-117); Anion Gap 11 (12-20); Aspartate Amino Transferase 14 U/L (5-37); Bilirubin Direct 0.3 mg/dL (0.0-0.5); Bilirubin Total 0.6 mg/dL (0.0-1.0); Blood Urea Nitrogen 11 mg/dL (9-16); Calcium 9.6 mg/dL (8.4-10.2); Carbon Dioxide 28 mmol/L (22-29); Chloride 104 mmol/L (96-108); Creatinine Clr Calc Pharmacy 115.1; Estimated Glomerular Filt Rate > 60; Glucose Random 100 mg/dL (60-115); Potassium 3.5 mmol/L (3.3-5.1); Sodium 139 mmol/L (135-145); Total Protein 7.1 g/dL (6.5-8.0)
[2021-07-11 19:28] VITALS: BP 123/84; PULSE 82; RESP 18; TEMP 37.3; O2SAT 98
[2021-07-11] MEDS: Escitalopram Oxalate 10 MG TABLET PO (22:31)
--- NOTE | 2021-07-12 05:54 | PC.NURSE ---
Patient slept through the night, no distress observed/reported, behavior appropriate and cooperative, medication compliant, patient was accepted to [facility], RN to RN report completed, transfer paper work filled up, but patient doesn't want to go to [facility], reported he didn't get any help when he was there last time, [facility] called/notified, provider notified, day shift will follow up with the case in the morning, VSS, will continue to monitor.
[2021-07-12 06:25] VITALS: BP 110/74; PULSE 95; RESP 18; TEMP 36.4; O2SAT 99
--- NOTE | 2021-07-12 07:40 | PC.NURSE ---
patient appears to remain asleep at present respirations are even and unlabored patient appears in no distress
[2021-07-12 08:06] VITALS: BP 119/79; PULSE 98; RESP 13; TEMP 37.1; O2SAT 100
--- NOTE | 2021-07-12 11:01 | PC.NURSE ---
@1052AM CALL PLACED TO [facility] FOR THIS PT THEY HAVE HNE INS FOR A NOON TIME PICK TO GO TO [facility]. SUSAN ANSWERS, PUTS ME ON HOLD FOR 12 MINUTES. THEN TELLS ME IT IS APPROVED, BUT THEY ARE UNABLE TO ACCOMMODATE UNTIL 5PM. THIS CALL WAS TRANSFERRED TO RN LILLY FOR TO TELL [facility] IF THIS IS APPROPRIATE AND IF THE PT IS AT RISK OF LOSING THIS BED
[2021-07-12] MEDS: cloNIDine HCL 0.1 MG TABLET PO (11:39)
[2021-07-12] MEDS: Nicotine Polacrilex 2 MG GUM BUCCAL (11:39)
[2021-07-12] MEDS: buPROPion HCl XL 300 MG TAB.ER.24H PO (11:39)
== END 2021-07-12 12:52 ==
PROVIDERS: Emergency Provider Emergency Medicine
DX: F33.9 Major depressive disorder, recurrent, unspecified (principal); R45.851 Suicidal ideations; F41.1 Generalized anxiety disorder; F12.20 Cannabis dependence, uncomplicated; Z20.822 Contact with and (suspected) exposure to COVID-19; Z79.899 Other long term (current) drug therapy
CPT/HCPCS: 80048; 80076; 80307; 85025; 87635; 99285